=== PATIENT | female | born 1935 | race Caucasian/White ===

== ENCOUNTER 2017-12-03 08:52 | Inpatient (IN) | payer MEDICARE, OTHER ==
--- NOTE | 2017-11-20 18:58 | HP ---
HISTORY AND PHYSICAL: DATE OF ADMISSION/SURGERY: 12/03/17 OPERATING SURGEON: Jesus Weston MD* (DICTATED BY GLADYS KULKARNI) REASON FOR VISIT: History and physical prior to undergoing a right total knee arthroplasty. HISTORY OF PRESENT ILLNESS: Ms. Meyers is a very pleasant 82-year-old female who reports today for history and physical examination prior to undergoing a right total knee arthroplasty by Dr. Jesus Weston. The patient states that she has had longstanding history of right knee pain, which has been worsening over the past several years. She has tried conservative treatments such as physical therapy and NSAIDs; however, continues to have pain. She has elected to undergo a right total knee arthroplasty by Dr. Weston on 12/03/17. PAST MEDICAL HISTORY: 1. Diabetes. 2. Back pain. 3. Asthma. 4. Chronic bronchitis. 5. History of cataract. 6. History of seizures with last seizure approximately 5 years ago. 7. Melanoma, status post resection. 8. History of basal cell carcinoma status post resection. PAST SURGICAL HISTORY: 1. Left knee melanoma resection. 2. Mohs surgery. 3. Appendectomy. 4. Carpal tunnel release, left side x2, right x1. 5. Melanoma resection. 6. Right foot surgery. SOCIAL HISTORY: Negative for tobacco use. Positive for rare alcohol use. Currently lives with , able to live on a 1-margarita home. REVIEW OF SYSTEMS: General: Negative for weight loss or gain. No difficulty with anesthesia. HEENT: Negative for headaches, lightheadedness, or dizziness. No syncopal episodes. No history of stroke. Positive history of epilepsy or paresthesia approximately 5 years ago. Positive for episodes of dizziness without syncopal episodes. Cardiac: Negative for murmurs, heart attack. No history of chest pain or palpitations. Lungs: No history of chronic cough. Positive for chronic bronchitis. No shortness of breath. Musculoskeletal: Positive for chronic back pain. Positive for right knee pain. Neurological: No paresthesias, numbness, or tingling. Vascular: No history of DVTs or PEs. Integument: No difficulty with wound healing. No open wounds or sores. Hematologic: Again, no PEs or DVTs. Infectious Disease : No history of MRSA, HIV, or hepatitis C. : Negative for urinary frequency , urgency. No history of urinary tract infections or kidney stones. GI: Negative for nausea, vomiting, constipation, or diarrhea. PHYSICAL EXAMINATION GENERAL: Well appearing, in no acute distress. Alert and oriented. Appears younger than stated age. HEENT: Normocephalic, atraumatic. Trachea midline. CARDIAC: Regular rate and rhythm. No murmurs, gallops, or rubs. LUNGS: Clear to auscultation bilaterally. Decreased breath sounds bilaterally likely due to body habitus. ABDOMEN: Soft, nontender, nondistended. Obese. No organomegaly palpable. Negative CVA tenderness bilaterally. INTEGUMENT: Skin intact. VASCULAR: Posterior tibial pulses 2+ bilaterally. Negative Trena's sign bilaterally. Sensation intake to light touch, bilateral lower extremities. MUSCULOSKELETAL: Right knee with range of motion 0 to 120 degrees. No effusion seen. No crepitus. No tenderness over the medial joint line or lateral joint line. No instability with valgus or varus stresses. RADIOGRAPHS: MRI of the right knee obtained on 10/25/17 showed degenerative changes with swelling of the articular cartilage in the femoral and tibial joint spaces, more medially than laterally with minimal bone spurring as well as a horizontal tear in the posterior horn of the medial meniscus and chondromalacia patella. ASSESSMENT: Right knee arthritis, end stage. PLAN: The patient is likely to undergo a right total knee arthroplasty by Dr. Weston on 12/03/17. Her x-rays were reviewed by Dr. Weston. She has had followup with Dr. Campos for her medical clearance and is pending medical clearance thus far. She will undergo preoperative testing today. She had no other questions or concerns with regards to her surgery and she will call us if any do arise. GLADYS KULKARNI [id number]/[facility] #: [id number] EARL
[~2017-12-03 08:52] MED LIST: Acetaminophen IV 1GM/100ML * 1,000 MG/100 ML VIAL IVPB ONE; Buffered Lidocaine 0.9% SYRIN* 5 ML/SYR SYRINGE INTRADERM ONE; Ondansetron INJ* 2 MG/ML VIAL IV ONE; Scopolamine 1.5 mg* PATCH TRANSDERM ONE
[2017-12-03] MEDS ORDERED: Ondansetron INJ* 2 MG/ML VIAL ONE ×2 (09:02→10:58)
[2017-12-03] MEDS ORDERED: ceFAZolin 2 GM PREMIX (*) 2 GM/50 ML BAG IVPB ONE (09:02)
[2017-12-03] MEDS ORDERED: Scopolamine 1.5 mg* PATCH ONE (09:02)
[2017-12-03] MEDS ORDERED: Buffered Lidocaine 0.9% SYRIN* 5 ML/SYR SYRINGE ONE (09:02)
[2017-12-03] MEDS ORDERED: Acetaminophen IV 1GM/100ML * 100 ML ONE (09:05)
[2017-12-03] MEDS ORDERED: fentaNYL* 50 MCG/ML 2 ML VIAL (100 MCG VIAL) ONE ×2 (09:19→13:55)
[2017-12-03] MEDS ORDERED: Midazolam* 1 MG/ML 2 ML VIAL (2 MG) ONE (09:20)
[2017-12-03] MEDS ORDERED: Rocuronium* 10 MG/ML VIAL ONE (10:13)
[2017-12-03] MEDS ORDERED: oxyCODONE TAB* 5 MG TAB PO PRN ×3 (10:17→12:45)
[2017-12-03] MEDS ORDERED: HYDROmorphone INJ* 1 MG/ML CARPUJECT SYRINGE IV PRN (10:17)
[2017-12-03] MEDS ORDERED: Ondansetron INJ* 2 MG/ML VIAL IV PRN ×2 (10:17→12:45)
[2017-12-03] MEDS ORDERED: diPHENhydraMINE IV* 50 MG/ML 1 ml VIAL (BENADRYL) IV PRN ×2 (10:17→12:45)
[2017-12-03] MEDS ORDERED: Naloxone* 0.4 MG/ML 1 ML VIAL IV PRN (10:17)
[2017-12-03] MEDS ORDERED: fentaNYL* 50 MCG/ML 2 ML VIAL (100 MCG VIAL) IV PRN (10:17)
[2017-12-03] MEDS ORDERED: Bupivacaine 0.25% SDV* 30 ML ONE ×2 (10:29→11:08)
[2017-12-03] MEDS ORDERED: Ketorolac INJ* 30 MG/ML 1 ML VIAL ONE (10:58)
[2017-12-03] MEDS ORDERED: Propofol* 10 MG/ML 20 ML BTL IV PUSH ONE ×2 (10:58→12:30)
[2017-12-03] MEDS ORDERED: HYDROmorphone INJ* 1 MG/ML CARPUJECT SYRINGE ONE (11:15)
[2017-12-03] MEDS ORDERED: Neostigmine Methylsulfate* 1 MG/ML 10 ML VIAL (1 mg/ml) ONE (12:06)
[2017-12-03] MEDS ORDERED: Glycopyrrolate IV* 0.2 MG/ML 1 ML VIAL ONE (12:06)
[2017-12-03] MEDS ORDERED: Magnesium Hydroxide LIQ* 30 ML UDC PO PRN (12:45)
[2017-12-03] MEDS ORDERED: oxyCODONE/Acetamin 5/325 MG* TAB PO PRN ×2 (12:45→18:25)
[2017-12-03] MEDS ORDERED: Ondansetron TAB* 4 MG PO PRN (12:45)
[2017-12-03] MEDS ORDERED: diPHENhydraMINE PO* 25 MG PO PRN (12:45)
[2017-12-03] MEDS ORDERED: Morphine VIAL* 4 MG/ML VIAL (1 ml vial) IV PRN ×2 (12:45)
[2017-12-03] MEDS ORDERED: Cyclobenzaprine TAB* 10 MG PO PRN (12:45)
[2017-12-03] MEDS ORDERED: Bisacodyl SUPP* 10 MG SUPP PR PRN (12:45)
[2017-12-03] MEDS ORDERED: Gabapentin CAP(*) 100 MG PO PRN (12:53)
[2017-12-03] MEDS ORDERED: D5W 1/2 NS 1000 ML BAG* 1,000 ML IV SCH (13:00)
[2017-12-03] MEDS ORDERED: oxyCODONE TAB* 5 MG TAB ONE (13:48)
--- NOTE | 2017-12-03 13:51 | RAD ---
HISTORY: Right total knee replacement COMPARISONS: None VIEWS: 2, Frontal and lateral views of the right knee FINDINGS: BONE DENSITY: Normal. BONES: The patient is status post right knee arthroplasty. There is no hardware failure or osteolysis. JOINTS: The patient is status post right knee arthroplasty. ALIGNMENT: There is no dislocation. SOFT TISSUES: There is post surgical change to the soft tissue. OTHER FINDINGS: None. IMPRESSION: STATUS POST RIGHT KNEE ARTHROPLASTY.
[2017-12-03] MEDS ORDERED: Warfarin TAB(*) 10 MG PO ONE (17:00)
[2017-12-03] MEDS ORDERED: Dextrose 50% Syringe 50 ML* 25 GM/50 ML SYRINGE IV PUSH PRN (18:24)
[2017-12-03] MEDS: ceFAZolin 1 GM in Dextrose (*) 1 GM/50 ML BAG IVPB SCH (20:32)
[2017-12-03] MEDS: levETIRAcetam TAB* 500 MG PO SCH (20:35)
[2017-12-03] MEDS: Docusate CAP* 100 MG PO SCH (20:35)
[2017-12-03] MEDS: Omeprazole CAP* 20 MG PO SCH (20:35)
[2017-12-03] MEDS: oxyCODONE/Acetamin 5/325 MG* TAB PO PRN (20:48)
[2017-12-03] MEDS: Magnesium Hydroxide LIQ* 30 ML UDC PO SCH (20:54)
[2017-12-03] MEDS ORDERED: Linagliptin (NF) 5 MG TAB PO SCH (21:00)
--- NOTE | 2017-12-03 21:33 | OP ---
DATE OF OPERATION: 12/03/17 - Inpatient, room SSU 346-02 DATE OF : 35 ATTENDING SURGEON: Jesus Weston MD PHARMACIST INTERN: Marcia Garces RPA ANESTHESIOLOGIST: Day Dowell MD ANESTHESIA: General endotracheal. PRE-OP DIAGNOSIS: Osteoarthritis, right knee. POST-OP DIAGNOSIS: Osteoarthritis, right knee. OPERATIVE PROCEDURE: Right total knee arthroplasty. ESTIMATED BLOOD LOSS: Less than 50 cc. COMPLICATIONS: None. SUMMARY: Mrs. Meyers is an 82-year-old female who has been having continued troubles with right knee pain. She had been treated conservatively, but has been having more troubles and limitations with the knee despite continued treatment. I discussed with her the total knee arthroplasty should work well to help decrease her pain and improve her function. Risks of surgery such as infection, scar formation, stiffness, DVT, pulmonary embolism, hardware failure , and continued pain were some of the risks discussed. She had been declared medically optimized and wished to proceed. Marcia Garces was present throughout the case and it could not have been done without an assist. DESCRIPTION OF PROCEDURE: The patient was brought to the OR and general endotracheal anesthesia was established. Montiel catheter was placed. Tourniquet was placed over the proximal right thigh and was used during the case. Total tourniquet time would be approximately 60 minutes. Right knee was prepped and then draped. Skin over the incisional area was infiltrated using 20 cc of 0.25% Marcaine without epinephrine. Esmarch was used to exsanguinate the leg and the tourniquet was raised. Midline incision was made centered about the patella and carried down to the medial side of the tibial tubercle. Incision was carried down through the skin and subcutaneous fat. Small bleeders encountered were ligated using electrocautery. Sharp parapatellar arthrotomy was made and quite a bit of clear yellowish joint fluid was encountered. Soft tissues were sharply elevated from the medial side of the tibia and the fat pad were sharply excised. Patella measured 22 mm in thickness and a nice 9.5 mm cut was taken. Patella was then easily subluxated laterally and the knee was flexed up. Nice exposure of the distal femur was obtained. Step drill was used to open the femoral canal and intramedullary guide was placed. Guide was adjusted until it was parallel with the epicondyles and posterior condyles and then pinned into place. Distal femoral cutting guide was then pinned into place and intramedullary guide was removed. Distal femoral cut was taken with resecting 2 mm of bone and at 2 degrees. This corresponded to preoperative templating that I had done. Femur was sized and she has had nicely for a 5. Unfortunately, I had pushed down perhaps a little to hard and the superior dill hole were to come out right in the cortex. This was moved up 2 mm and now this was within a substance of the cortex where I could feel the top and I thought this would be good. Anterior and posterior femoral cuts followed by the chamfer cuts were taken. Attention was turned to the tibia. Step drill was used to open the tibial canal and the intramedullary guide was placed. Outrigger was assembled and adjusted until it appeared it would take 2 mm from the worn medial side. Cutting guide was then pinned into place and the proximal tibial cut was taken. Spacer block was placed and her flexion and extension gaps were perfect. She was in slight varus , but I thought considering her gaps were perfect that this would be acceptable. Proximal tibia was sized and a D fit very nicely. Proximal tibia was drilled and then punched. Femoral trial was placed and the notch was finished and the stud holes were drilled. She was trialed with a 10 mm trial polyethylene and came out nicely into full extension, flexed easily, and patellar tracking was perfect even without the prosthesis. Patella was sized and the 32 sat nicely. Holes were drilled and trial was snapped into place and she had the same wonderful tracking. Trial instrumentation was removed and knee was copiously pulse lavaged. Cement was being prepared. Tibia followed by femur and patella were all cemented into place. Once the cement had hardened , knee was searched for excess cement and a few small pieces were found. Knee was again copiously pulse lavaged and 10 polyethylene was then snapped into place. Knee was again pulse lavaged and parapatellar arthrotomy was repaired using interrupted #1 Vicryl sutures. Tourniquet was let down and no significant bleeding was encountered. Subcutaneous tissues were reapproximated with 2-0 Vicryl. Skin was closed using henrique. Sterile dressing and a Cryo/ Cuff were applied in the OR. The patient was then extubated in the OR and was stable on transfer to the recovery room. [id number]/[facility] #: [id number] EARL
--- NOTE | 2017-12-03 23:13 | CONS ---
CC: Dr. Dex Campos; Dr. Jesus Weston* CONSULTATION REPORT: DATE OF CONSULT: 12/03/17 PRIMARY CARE PROVIDER: Dr. Dex Campos. PHYSICIAN REQUESTING CONSULTATION: Dr. Jesus Weston. ATTENDING PHYSICIAN: Dr. Aydee Gil (dictated by Steve Camacoh NP). REASON FOR CONSULTATION: Bradypnea in a patient postop elective surgery. HISTORY OF PRESENT ILLNESS: Ms. Meyers is an 82-year-old female with past medical history significant for diabetes mellitus, back pain, asthma, history of epilepsy, melanoma, basal cell carcinoma, paroxysmal atrial fibrillation, TIA , GERD, diverticulosis and osteoarthritis, who presented to the hospital for an elective right total knee arthroplasty with Dr. Jesus Weston today. The patient states that leading up to her surgery today, she has been in her usual state of health, although she has felt fatigued lately as she cares for her . She denies any recent fevers, chills, chest pain, shortness of breath , nausea, vomiting, diarrhea. The patient states that she is unaware of any snoring while she sleeps. She denies any recent cold symptoms or history of sleep apnea. While in the recovery room, the patient was reported to have respiratory rates between 12 and 16. When she arrived to the floor out of the PACU, she was noted to have respiratory rate of 4 when sleeping, this would improve. Due to her bradypnea, the hospitalists were asked to consult on the patient. PAST MEDICAL HISTORY: 1. Diabetes mellitus. 2. Back pain. 3. Asthma. 4. Epilepsy. 5. Melanoma. 6. Basal cell carcinoma. 7. Paroxysmal atrial fibrillation. 8. Mitral valve stenosis. 9. TIA history. 10. GERD. 11. Diverticulosis. 12. Osteoarthritis. PAST SURGICAL HISTORY: 1. Status post excision of melanoma to left knee. 2. Status post Mohs surgery. 3. Status post appendectomy. 4. Status post bilateral carpal tunnel release. 5. Status post excision of neuroma from her left foot. 6. Status post right 2nd hammertoe repair. 7. Status post tonsillectomy. 8. Status post right rotator cuff repair. 9. Status post left knee arthroscopy. 10. Status post left rotator cuff repair. 11. Status post bilateral 1st metatarsal surgery. 12. Status post basal cell carcinoma excision underneath the left breast. 13. Status post excision of melanoma from chin. 14. Status post L4-5 laminectomy. 15. Status post right foot 2nd digit surgery. HOME MEDICATIONS: Include: 1. Neurontin 200 mg oral twice daily as needed for pain. 2. Diflucan 150 mg oral every morning. 3. Viactiv vitamin 1 chewable every morning. 4. Ocuvite 1 oral every morning. 5. Meloxicam 15 mg oral every morning. 6. Jardiance 25 mg oral every morning. 7. Diltiazem 120 mg oral every morning. 8. Omeprazole 40 mg oral every morning. 9. Osteo Bi-Flex 1 tablet oral every morning. 10. Selenium 100 mcg oral every morning. 11. Aspirin 325 mg oral 3 times daily. 12. [place] 5/325 one tablet oral twice daily as needed for pain. 13. Keppra 750 mg oral every 12 hours. 14. Linagliptin 5 mg oral daily at bedtime. ALLERGIES: HEPARIN, LATEX, METFORMIN, MOXIFLOXACIN, PROCAINE, AMBIEN, NOVOCAINE , ENVIRONMENTAL ALLERGIES. FAMILY HISTORY: The patient's mother had a history of heart disease. The patient's father with a history of diabetes mellitus. She had a paternal grandfather and grandmother with a history of breast cancer. She had a brother who passed at age 57 with a history of cancer and heart disease. SOCIAL HISTORY: The patient denies tobacco, alcohol, recreational drug use. She lives with her . Her daughterGay will be her surrogate decision maker in the event she is unable to make decisions for herself. REVIEW OF SYSTEMS: I performed an 11-point review of systems. All the pertinent positives and negatives are mentioned in the history of present illness. The remaining review of systems are negative. PHYSICAL EXAMINATION: Vital Signs: Temperature 97.6, heart rate 73, respiratory rate 10, O2 sat 99% on 2 L via nasal cannula, blood pressure 136/ 51. General Appearance: The patient is alert, pleasant, appears to be in no acute distress. HEENT: Normocephalic, atraumatic. Pupils are equal and reactive to light. Extraocular movements are intact. Respiratory: There is no accessory muscle use. The lungs are clear to auscultation bilateral. Cardiovascular: Regular rate and rhythm. S1, S2 present. There is no murmurs , rubs, or gallops heard. Abdomen: Soft, nontender, nondistended. There are bowel sounds present x4. Extremities: No lower extremity edema. DP and PT pulses are 2+ and symmetric. Musculoskeletal: There is no clubbing or cyanosis noted. The patient exhibits good strength in all extremities. Neurological: The patient is alert and oriented x4. Cranial nerves II through XII are grossly intact. Psychological: The patient is calm and cooperative. Skin: There are no rashes or abnormalities seen. The patient has a dressing that is clean, dry, and intact to her right knee. DIAGNOSTIC STUDIES/LAB DATA: Preoperative labs from 11/08/17: Sodium 140, potassium 4.4, chloride 107, CO2 24, BUN 26, creatinine 0.99, glucose 135. White blood cell count 7.3, hemoglobin 10.3, hematocrit 33, platelet count 300. Urinalysis from 11/14/17 significant for 3+ leukocyte esterase, 2+ wbc's, squamous epithelial cells and transition cells present. ABG from today; pH 7.34 , pCO2 41, pO2 90, HCO3 22.3, O2 sat 98.6, base excess negative 3.4. IMPRESSION: Ms. Meyers is an 82-year-old female with past medical history significant for diabetes mellitus, transient ischemic attack, gastroesophageal reflux disease, diverticulosis, asthma, back pain, melanoma, paroxysmal atrial fibrillation and osteoarthritis, who presented to the hospital for an elective right total knee arthroplasty with Dr. Weston. The hospitalists were asked to assist with the co-medical management of this patient in addition to evaluate her bradypnea postoperatively. ASSESSMENT/PLAN: 1. Status post right total knee arthroplasty. Management per Orthopedic Surgery. The patient will have physical therapy and occupational therapy in the morning. She will have a urinary catheter in place until the morning. She will have DVT prophylaxis per Orthopedics. She will have pain management and be placed on a bowel regimen. Her H and H will be trended. 2. Bradypnea. The patient's respiratory rate is currently 7 to 16. She drops down to 7 when she is sleeping and is around 16 when she is awake and talking. She is easily arousable, I do not feel she needs any Narcan at this time. She had an ABG significant for a pH of 7.34 and O2 sat of 98.6. We will continue to monitor the patient on capnography overnight. 3. History of paroxysmal atrial fibrillation. The patient states that she has had 1 episode of atrial fibrillation in the past. She is not currently anticoagulated for this. She will be continued on her diltiazem. 4. Diabetes mellitus. We will get fingersticks a.c. and h.s. Place the patient on a lispro sliding scale. We will hold her Jardiance and linagliptin while she is in the hospital and resume at discharge. The patient's last hemoglobin A1c was 7.6. 5. History of back pain. The patient will be given medications per Orthopedic Surgery. She will have Neurontin as needed. 6. Gastroesophageal reflux disease. The patient will be continued on her home omeprazole. 7. Asthma. The patient has no signs of acute exacerbation. She is not on any maintenance medications at home. We will continue to monitor. 8. History of epilepsy. The patient's last seizure was approximately 5 years ago. She will be continued on her home Keppra dosing. 9. Fluids, electrolytes, and nutrition. The patient will have IV fluids overnight. She will be on a consistent carbohydrate diet. 10. Code status. Full code. 11. DVT prophylaxis. The patient will have Lovenox bridge to warfarin per Orthopedic Surgery. 12. Disposition. Inpatient. Disposition will be per Orthopedic Surgery. TIME SPENT: Time for this consultation was approximately 60 minutes, greater than half of that was spent with the patient discussing medications, past medical history and the events leading up to her arrival today. The case has been reviewed with the attending, Dr. Gil, who agrees with the plan of care. STEVE CAMACHO, LEAH [id number]/[facility] #: [id number] EARL
[2017-12-04] MEDS: oxyCODONE/Acetamin 5/325 MG* TAB PO PRN ×2 (02:22→06:19)
[2017-12-04] MEDS: ceFAZolin 1 GM in Dextrose (*) 1 GM/50 ML BAG IVPB SCH ×2 (04:13→13:02)
[2017-12-04 05:53] LABS: Hematocrit 27 % (35-47); Hemoglobin 8.4 g/dl (12.0-16.0); Mean Platelet Volume 7.4 um3 (7.4-10.4); Platelet Count 213 10^3/ul (150-450)
[2017-12-04 06:01] LABS: INR 1.07 (0.77-1.02)
[2017-12-04 06:05] LABS: EGFR Non-African American 57.7 (>60)
[2017-12-04] MEDS: levETIRAcetam TAB* 500 MG PO SCH ×2 (08:26→22:28)
[2017-12-04] MEDS: Fluconazole 100 MG TAB* TAB PO SCH (08:28)
[2017-12-04] MEDS: Diltiazem CD CAP* 120 MG PO SCH (08:28)
[2017-12-04] MEDS: Docusate CAP* 100 MG PO SCH ×2 (08:28→22:28)
[2017-12-04] MEDS: Magnesium Hydroxide LIQ* 30 ML UDC PO SCH ×2 (08:30→22:30)
--- NOTE | 2017-12-04 08:36 | PN ---
Progress Note - Progress Note Date of Service: 12/04/17 SOAP: Subjective: [Pt was seen sitting up in chair today while eating breakfast. Pt states that she is doing well. States that she does have some pain in the knee. Denies any nausea, vomiting, chest pain or coughing. Denies SOB. Denies numbness or tingling. ] Objective: [General: alert, awake and oriented. NAD. MSK, RLE: Dressing is clean, dry and intact. Pt is able to df/pf. Calf is soft and non tender. NVI and 2+ DP. ] Vital Signs Temp 98.2 F 12/04/17 03:51 Pulse 98 12/04/17 03:51 Resp 12 12/04/17 06:19 BP 132/53 12/04/17 03:51 Pulse Ox 98 12/04/17 03:51 Intake & Output 12/03/17 12/04/17 12/04/17 18:59 06:59 18:59 Intake Total 2019 1999 Output Total 400 1275 Balance 1620 725 Weight 173 lb Intake: IV Fluids 2019 1000 D5W 1/2 NS 270 LR 1000 1000 NS 700 NS 50ML, Cefazolin 2G 50 IVPB 100 ABX - CEFAZOLIN 100 Oral 900 Output: Montiel 200 1275 Estimated Blood Loss 200 Assessment: [POD 1 Right total knee arthroplasty] Plan: [Start PT this am Continue with current pain medication Continue with lovenox for anticoagulation Dressing change tomorrow. ]
[2017-12-04] MEDS ORDERED: EMPAGLIFLOZIN 25 MG PO SCH (09:00)
[2017-12-04] MEDS: Insulin LISPRO* 1 UNITS UNIT SUBCUT SCH ×3 (10:12→17:59)
[2017-12-04] MEDS: SELENIUM 200 MCG PO SCH (10:12)
[2017-12-04] MEDS ORDERED: oxyCODONE TAB* 5 MG TAB PO PRN ×2 (10:32→10:34)
[2017-12-04] MEDS ORDERED: Enoxaparin(*) 30 MG/0.3 ML SYR SUBCUT SCH (12:00)
[2017-12-04] MEDS: Acetaminophen TAB* 325 MG PO SCH ×2 (13:02→17:51)
[2017-12-04] MEDS ORDERED: Warfarin TAB(*) 4 MG PO ONE (17:00)
--- NOTE | 2017-12-04 17:38 | PN ---
Subjective Date of Service: 12/04/17 Interval History: Patient seen and examined at bedside. Denies fever, chills, shortness of breath , chest discomfort, N/V/D. Pt states that her pain is controlled. Per Pt's Daughter Gay, she usually develops confusion post-op. It's to not that the Pt states that she avoids Tylenol as it causes her to be "angry", she is will to trial Tylenol. Family History: Unchanged from Admission Social History: Unchanged from Admission Past Medical History: Unchanged from Admission Objective Active Medications: Acetaminophen (Tylenol Tab*) 975 mg PO Q6H SHWETA Bisacodyl (Dulcolax Supp*) 10 mg OH DAILY PRN Reason: constipation Cyclobenzaprine HCl (Flexeril Tab*) 10 mg PO TID PRN Reason: SPASMS Dextrose (D50w Syringe 50 Ml*) 12.5 gm IV PUSH .FOR FS < 60 - SS PRN Reason: FS < 60 Diltiazem HCl (Cardizem Cd Cap*) 120 mg PO QAM SHWETA Diphenhydramine HCl (Benadryl Iv*) 25 mg IV Q6H PRN Reason: itching Diphenhydramine HCl (Benadryl Po*) 25 mg PO Q6H PRN Reason: itching Docusate Sodium (Colace Cap*) 100 mg PO BID SHWETA Enoxaparin Sodium (Lovenox(*)) 30 mg SUBCUT Q24H SHWETA Fluconazole (Diflucan 100 Mg Tab*) 150 mg PO DAILY SHWETA Gabapentin (Neurontin Cap(*)) 200 mg PO BID PRN Reason: PAIN Insulin Human Lispro (Humalog*) 0 - 10 units SUBCUT AC SHWETA Levetiracetam (Keppra Tab*) 750 mg PO Q12H SHWETA Magnesium Hydroxide (Milk Of Magnesia Liq*) 30 ml PO BID SHWETA Magnesium Hydroxide (Milk Of Magnesia Liq*) 30 ml PO Q6H PRN Reason: constipation Omeprazole (Prilosec Cap*) 40 mg PO BEDTIME SHWETA Ondansetron HCl (Zofran Inj*) 4 mg IV Q6H PRN Reason: nausea Ondansetron HCl (Zofran Tab*) 4 mg PO Q6H PRN Reason: NAUSEA Oxycodone HCl (Roxycodone Tab*) 5 mg PO Q4H PRN Reason: PAIN - SEVERE Oxycodone HCl (Roxycodone Tab*) 10 mg PO Q4H PRN Reason: PAIN - BREAKTHROUGH Pharmacy Profile Note (Scopolamine Patch Remove*) 1 note PATCH OFF ONCE ONE Stop: 12/06/17 06:01 Pharmacy Profile Note (Coumadin Daily Reminder*) 1 note FOLLOW UP 1700 SHWETA Selenium (Selenium (Nf)) 100 mcg PO QAM [facility] Vital Signs - 8 hr 12/04/17 11:22 Temperature 98.1 F Pulse Rate 100 Respiratory 18 Rate Blood Pressure 132/43 (mmHg) O2 Sat by Pulse 98 Oximetry Oxygen Devices in Use Now: None Appearance: NAD, sitting up in bed Ears/Nose/Mouth/Throat: Mucous Membranes Moist Respiratory: Symmetrical Chest Expansion and Respiratory Effort, Clear to Auscultation Cardiovascular: NL Sounds; No Murmurs; No JVD, RRR Abdominal: NL Sounds; No Tenderness; No Distention Extremities: No Edema Skin: No Rash or Ulcers Neurological: Alert and Oriented x 3 - , confused, NL Muscle Strength and Tone Lines/Tubes/Other Access: Clean, Dry and Intact Peripheral IV - site benign Nutrition: Taking PO's Result Diagrams: 12/04/17 05:21 12/04/17 05:21 Assess/Plan/Problems-Billing Assessment: Ms. Meyers is an 82 yo female with PMH significant for DM, back pain, asthma, epilepsy, melanoma, breast CA, P afib, MV stenosis, TIA, GERD, diverticulosis, osteoarthritis. - Patient Problems (1) Status post total right knee replacement Code(s): Z96.651 - PRESENCE OF RIGHT ARTIFICIAL KNEE JOINT SNOMED Code(s): 2445153341125 Comment: - POD 1, managment per ortho - Continue pain management, bowel regimen, PT and OT (2) Acute confusion Code(s): R41.0 - DISORIENTATION, UNSPECIFIED SNOMED Code(s): 006616705 Comment: - Suspect post-op delirium - Pt with a history of confusion post-op - Continue supportive care and limit narcotics as able (3) Bradypnea Code(s): R06.89 - OTHER ABNORMALITIES OF BREATHING SNOMED Code(s): 47156189 Comment: - Resolved - Suspect secondary to anesthesia (4) Paroxysmal atrial fibrillation Code(s): I48.0 - PAROXYSMAL ATRIAL FIBRILLATION SNOMED Code(s): 009975026 Comment: - Heart rate regular - Continue diltiazem (5) Diabetes Code(s): E11.9 - TYPE 2 DIABETES MELLITUS WITHOUT COMPLICATIONS SNOMED Code(s) : 78004499 Comment: - Glucose 140-180's - HgA1C, 7.6 - Continue Lispro SS - Hold Jardiance and linagliptin and resume at discharge (6) Back pain Code(s): M54.9 - DORSALGIA, UNSPECIFIED SNOMED Code(s): 777232201 Comment: - Continue neurontin PRN (7) GERD (gastroesophageal reflux disease) Code(s): K21.9 - GASTRO-ESOPHAGEAL REFLUX DISEASE WITHOUT ESOPHAGITIS SNOMED Code(s): 899671354 Comment: - Continue omeprazole (8) Asthma Code(s): J45.909 - UNSPECIFIED ASTHMA, UNCOMPLICATED SNOMED Code(s): 263385902 Comment: - No signs of acute exacerbation (9) Epilepsy Code(s): G40.909 - EPILEPSY, UNSP, NOT INTRACTABLE, WITHOUT STATUS EPILEPTICUS SNOMED Code(s): 59572514 Comment: - Continue Keppra (10) DVT prophylaxis Code(s): JXO6305 - SNOMED Code(s): 802144791 Comment: - Continue lovenox bridge to warfarin per ortho (11) Full code status Code(s): Z78.9 - OTHER SPECIFIED HEALTH STATUS SNOMED Code(s): 792498472 Status and Disposition: Inpatient. Disposition per orthopedics.
[2017-12-04] MEDS: Omeprazole CAP* 20 MG PO SCH (22:28)
[2017-12-05] MEDS: Acetaminophen TAB* 325 MG PO SCH ×2 (00:42→06:19)
[2017-12-05 06:56] LABS: Hematocrit 26 % (35-47); Hemoglobin 8.7 g/dl (12.0-16.0); Mean Platelet Volume 7.5 um3 (7.4-10.4); Platelet Count 247 10^3/ul (150-450)
[2017-12-05 07:04] LABS: INR 2.88 (0.77-1.02)
[2017-12-05] MEDS: Docusate CAP* 100 MG PO SCH (07:38)
[2017-12-05] MEDS: Fluconazole 100 MG TAB* TAB PO SCH (07:38)
[2017-12-05] MEDS: Diltiazem CD CAP* 120 MG PO SCH (07:38)
[2017-12-05] MEDS: levETIRAcetam TAB* 500 MG PO SCH (07:39)
[2017-12-05] MEDS: Magnesium Hydroxide LIQ* 30 ML UDC PO SCH (07:43)
[2017-12-05] MEDS: SELENIUM 200 MCG PO SCH (07:43)
[2017-12-05 07:57] VITALS: BP 129/47
[2017-12-05] MEDS: Insulin LISPRO* 1 UNITS UNIT SUBCUT SCH (08:46)
--- NOTE | 2017-12-05 10:34 | PN ---
Subjective Date of Service: 12/05/17 Interval History: Patient seen and examined at bedside. Denies fever, chills, shortness of breath , chest discomfort, N/V/D. Pt had increased confusion overnight. When talking with the Pt and daughter this morning, they report post-op delirium lasting for 3 months after her previous surgery. Discussed the importance to continue to limit narcotic if she is tolerating the Tylenol ok. Pt report open skin under her breasts. Family History: Unchanged from Admission Social History: Unchanged from Admission Past Medical History: Unchanged from Admission Objective Active Medications: Acetaminophen (Tylenol Tab*) 975 mg PO Q6H [facility] Bisacodyl (Dulcolax Supp*) 10 mg VT DAILY PRN Reason: constipation Cyclobenzaprine HCl (Flexeril Tab*) 10 mg PO TID PRN Reason: SPASMS Dextrose (D50w Syringe 50 Ml*) 12.5 gm IV PUSH .FOR FS < 60 - SS PRN Reason: FS < 60 Diltiazem HCl (Cardizem Cd Cap*) 120 mg PO QAM [facility]A Diphenhydramine HCl (Benadryl Iv*) 25 mg IV Q6H PRN Reason: itching Diphenhydramine HCl (Benadryl Po*) 25 mg PO Q6H PRN Reason: itching Docusate Sodium (Colace Cap*) 100 mg PO BID SH[facility]A Fluconazole (Diflucan 100 Mg Tab*) 150 mg PO DAILY SH[facility] Gabapentin (Neurontin Cap(*)) 200 mg PO BID PRN Reason: PAIN Insulin Human Lispro (Humalog*) 0 - 10 units SUBCUT AC [facility] Levetiracetam (Keppra Tab*) 750 mg PO Q12H [facility] Magnesium Hydroxide (Milk Of Magnesia Liq*) 30 ml PO BID [facility] Magnesium Hydroxide (Milk Of Magnesia Liq*) 30 ml PO Q6H PRN Reason: constipation Omeprazole (Prilosec Cap*) 40 mg PO BEDTIME [facility] Ondansetron HCl (Zofran Inj*) 4 mg IV Q6H PRN Reason: nausea Ondansetron HCl (Zofran Tab*) 4 mg PO Q6H PRN Reason: NAUSEA Oxycodone HCl (Roxycodone Tab*) 5 mg PO Q4H PRN Reason: PAIN - SEVERE Oxycodone HCl (Roxycodone Tab*) 10 mg PO Q4H PRN Reason: PAIN - BREAKTHROUGH Pharmacy Profile Note (Scopolamine Patch Remove*) 1 note PATCH OFF ONCE ONE Stop: 12/06/17 06:01 Pharmacy Profile Note (Coumadin Daily Reminder*) 1 note FOLLOW UP 1700 [facility] Selenium (Selenium (Nf)) 100 mcg PO QAM [facility] Vital Signs - 8 hr 12/05/17 12/05/17 12/05/17 02:38 03:33 05:09 Temperature 98.9 F Pulse Rate 98 Respiratory 16 20 16 Rate Blood Pressure 141/45 (mmHg) O2 Sat by Pulse 92 Oximetry 12/05/17 07:35 Temperature 97.9 F Pulse Rate 99 Respiratory 16 Rate Blood Pressure 129/47 (mmHg) O2 Sat by Pulse 92 Oximetry Oxygen Devices in Use Now: None Appearance: NAD, sitting up in a chair Ears/Nose/Mouth/Throat: Mucous Membranes Moist Respiratory: Symmetrical Chest Expansion and Respiratory Effort, Clear to Auscultation Cardiovascular: NL Sounds; No Murmurs; No JVD, RRR Abdominal: NL Sounds; No Tenderness; No Distention Extremities: - - Mild right LE swelling Skin: - - Dressing to right knee clean, dry and intact. Under bilateral breasts red with small open areas Neurological: Alert and Oriented x 3 - , with periods of confusion, NL Muscle Strength and Tone Lines/Tubes/Other Access: Clean, Dry and Intact Peripheral IV - site benign Nutrition: Taking PO's Result Diagrams: 12/05/17 06:37 12/04/17 05:21 Assess/Plan/Problems-Billing Assessment: Ms. Meyers is an 82 yo female with PMH significant for DM, back pain, asthma, epilepsy, melanoma, breast CA, P afib, MV stenosis, TIA, GERD, diverticulosis, osteoarthritis. - Patient Problems (1) Status post total right knee replacement Code(s): Z96.651 - PRESENCE OF RIGHT ARTIFICIAL KNEE JOINT SNOMED Code(s): 5057681129470 Comment: - POD 2, managment per ortho - Continue pain management, bowel regimen, PT and OT (2) Acute confusion Code(s): R41.0 - DISORIENTATION, UNSPECIFIED SNOMED Code(s): 837259779 Comment: - Suspect post-op delirium - Pt with a history of confusion post-op - Continue supportive care and limit narcotics as able (3) Skin breakdown Code(s): L90.9 - ATROPHIC DISORDER OF SKIN, UNSPECIFIED SNOMED Code(s): 136373626 Comment: - Mild skin breakdown under bilateral breasts - Suspect secondary to moisture - Will apply skin prep (4) Bradypnea Code(s): R06.89 - OTHER ABNORMALITIES OF BREATHING SNOMED Code(s): 04892316 Comment: - Resolved - Suspect secondary to anesthesia (5) Paroxysmal atrial fibrillation Code(s): I48.0 - PAROXYSMAL ATRIAL FIBRILLATION SNOMED Code(s): 337694085 Comment: - Heart rate regular - Continue diltiazem (6) Diabetes Code(s): E11.9 - TYPE 2 DIABETES MELLITUS WITHOUT COMPLICATIONS SNOMED Code(s) : 47165525 Comment: - Glucose 140-170's - HgA1C, 7.6 - Continue Lispro SS (Pt has been declining) - Hold Jardiance and linagliptin and resume at discharge (7) Back pain Code(s): M54.9 - DORSALGIA, UNSPECIFIED SNOMED Code(s): 735283990 Comment: - Continue neurontin PRN (8) GERD (gastroesophageal reflux disease) Code(s): K21.9 - GASTRO-ESOPHAGEAL REFLUX DISEASE WITHOUT ESOPHAGITIS SNOMED Code(s): 931603184 Comment: - Continue omeprazole (9) Asthma Code(s): J45.909 - UNSPECIFIED ASTHMA, UNCOMPLICATED SNOMED Code(s): 924075858 Comment: - No signs of acute exacerbation (10) Epilepsy Code(s): G40.909 - EPILEPSY, UNSP, NOT INTRACTABLE, WITHOUT STATUS EPILEPTICUS SNOMED Code(s): 22189806 Comment: - Continue Keppra (11) DVT prophylaxis Code(s): WIC1908 - SNOMED Code(s): 948578409 Comment: - Continue lovenox bridge to warfarin per ortho (12) Full code status Code(s): Z78.9 - OTHER SPECIFIED HEALTH STATUS SNOMED Code(s): 407601460 Status and Disposition: Inpatient. Disposition per orthopedics.
--- NOTE | 2017-12-05 11:26 | PN ---
Progress Note - Progress Note Date of Service: 12/05/17 SOAP: Subjective: []Patient seen at bedside. She is feeling well and desires discharge to home. Narcotic medications discontinued due to post-op delirium, with improvement of confusion taking tylenol alone. Denies CP, SOB, dizziness, nausea. Pain is well controlled with Tylenol. Objective: [] Vital Signs Temp 97.9 F 12/05/17 07:35 Pulse 99 12/05/17 07:35 Resp 14 12/05/17 08:00 BP 129/47 12/05/17 07:35 Pulse Ox 92 12/05/17 07:35 Intake & Output 12/04/17 12/05/17 12/05/17 18:59 06:59 18:59 Intake Total 350 965 200 Output Total 475 1550 200 Balance -125 -585 0 Intake: Oral 350 965 200 Output: Urine 475 1550 200 Other: # Bowel Movements 0 Laboratory Last Values Hgb 8.7 g/dl (12.0-16.0) L 12/05/17 06:37 Hct 26 % (35-47) L 12/05/17 06:37 Plt Count 247 10^3/ul (150-450) 12/05/17 06:37 MPV 7.5 um3 (7.4-10.4) 12/05/17 06:37 INR (Anticoag Therapy) 2.88 (0.77-1.02) H 12/05/17 06:37 Patient Temperature Not Reportable 12/03/17 17:50 ABG pH 7.34 (7.35-7.45) L 12/03/17 17:50 ABG pH (Temp Correct) Not Reportable 12/03/17 17:50 ABG pCO2 41 mmHg (35-45) 12/03/17 17:50 ABG pCO2 (Temp Corrct Not Reportable 12/03/17 17:50 ABG pO2 90 mmHg (80-100) 12/03/17 17:50 ABG pO2 (Temp Correct Not Reportable 12/03/17 17:50 ABG HCO3 22.3 mmol/L (19-31) 12/03/17 17:50 ABG O2 Saturation 98.6 % (95-98) H 12/03/17 17:50 ABG Base Excess -3.4 (-2.0-2.0) L 12/03/17 17:50 Respiration Rate Not Reportable 12/03/17 17:50 O2 Delivery Device n/c 12/03/17 17:50 Ventilator Type Not Reportable 12/03/17 17:50 Vent Mode Not Reportable 12/03/17 17:50 FiO2 1 12/03/17 17:50 Inspiratory Time Not Reportable 12/03/17 17:50 PEEP Not Reportable 12/03/17 17:50 Pressure Support Not Reportable 12/03/17 17:50 Pressure Control Not Reportable 12/03/17 17:50 EPAP Not Reportable 12/03/17 17:50 IPAP Not Reportable 12/03/17 17:50 BiPAP Not Reportable 12/03/17 17:50 Sodium 136 mmol/L (139-145) L 12/04/17 05:21 Potassium 4.4 mmol/L (3.5-5.0) 12/04/17 05:21 Chloride 106 mmol/L (101-111) 12/04/17 05:21 Carbon Dioxide 24 mmol/L (22-32) 12/04/17 05:21 Anion Gap 6 mmol/L (2-11) 12/04/17 05:21 BUN 14 mg/dL (6-24) 12/04/17 05:21 Creatinine 0.93 mg/dL (0.51-0.95) 12/04/17 05:21 Est GFR ( Amer) 74.2 (>60) 12/04/17 05:21 Est GFR (Non-Af Amer) 57.7 (>60) 12/04/17 05:21 BUN/Creatinine Ratio 15.1 (8-20) 12/04/17 05:21 Glucose 149 mg/dL (70-100) H 12/04/17 05:21 POC Glucose (mg/dL) 174 mg/dL (70-100) H 12/05/17 07:32 Calcium 8.3 mg/dL (8.6-10.3) L 12/04/17 05:21 Blood Type B Positive 12/03/17 09:34 Antibody Screen Negative 12/03/17 09:34 General: Well appearing, NAD. Much less confused than yesterday. She answers questions appropriately. RLE: Dressing changed. Incision CDI without erythema or discharge. DF/PF intact. Sensation intact distally. DP 2+ BL LE: Calves supple and nontender without erythema, edema or palpable cords. Assessment: []POD 2 sp right total knee Plan: []WBAT PT/OT DC to home Tylenol for pain control Hold coumadin today
[2017-12-06] MEDS ORDERED: Scopolamine PATCH Remove* 1 NOTE MISC PATCH OFF ONE (06:00)
== END 2017-12-05 12:25 | disposition home health service (06) | DRG 470 ==
LOC: AA 08:52 → SSU 15:43
PROVIDERS: ADMIT Orthopaedic Surgery; ATTEND Internal Medicine
PROC: 0SRC0J9 Replacement of Right Knee Joint with Synthetic Substitute, Cemented, Open Approach (ICD-10-PCS; principal; 2017-12-03 10:30)
DX: M17.11 Unilateral primary osteoarthritis, right knee (principal); J45.909 Unspecified asthma, uncomplicated; J42 Unspecified chronic bronchitis; E11.36 Type 2 diabetes mellitus with diabetic cataract; M22.41 Chondromalacia patellae, right knee; I48.0 Paroxysmal atrial fibrillation; K21.9 Gastro-esophageal reflux disease without esophagitis; M21.161 Varus deformity, not elsewhere classified, right knee; G89.29 Other chronic pain; M54.9 Dorsalgia, unspecified; I05.0 Rheumatic mitral stenosis; G40.909 Epilepsy, unspecified, not intractable, without status epilepticus; K57.90 Diverticulosis of intestine, part unspecified, without perforation or abscess without bleeding; Z86.73 Personal history of transient ischemic attack (TIA), and cerebral infarction without residual deficits; Z88.1 Allergy status to other antibiotic agents; Z88.8 Allergy status to other drugs, medicaments and biological substances; Z85.820 Personal history of malignant melanoma of skin; Z91.040 Latex allergy status; Z72.89 Other problems related to lifestyle; Z82.49 Family history of ischemic heart disease and other diseases of the circulatory system; Z83.3 Family history of diabetes mellitus; Z80.3 Family history of malignant neoplasm of breast; Z85.3 Personal history of malignant neoplasm of breast; R41.0 Disorientation, unspecified; R06.89 Other abnormalities of breathing; T41.3X5A Adverse effect of local anesthetics, initial encounter; Y83.8 Other surgical procedures as the cause of abnormal reaction of the patient, or of later complication, without mention of misadventure at the time of the procedure; T88.2XXA Shock due to anesthesia, initial encounter; Y79.3 Surgical instruments, materials and orthopedic devices (including sutures) associated with adverse incidents; Y92.239 Unspecified place in hospital as the place of occurrence of the external cause; L98.8 Other specified disorders of the skin and subcutaneous tissue
CPT/HCPCS: 36415; 36600; 80048; 82803; 85014; 85018; 85049; 85610; 86850; 86900; 86901; 94760; A9270-GY; C1776; G8978-GP-CJ; G8978-GP-CK; G8979-GP-CI; G8987-GO-CL; G8988-GO-CI; J0690; J1170; J1650; J1885; J2250; J2405; J2704; J2710; J3010

== ENCOUNTER 2018-07-15 09:04 | Inpatient (IN) | payer MEDICARE, OTHER ==
--- NOTE | 2018-07-15 09:23 | ED ---
Abdominal Pain/Female - HPI Summary HPI Summary: This pt is an 82 y/o female presenting to [facility] via EMS from [facility] for abd pain and possible perforation. Pt reports she was at [facility] 2 days ago and was diagnosed with diverticulitis. She was placed on antibiotics and discharged home. This morning at around 05:00 pt developed increased abd pain and had a CT done that showed perforated bowel. Pt c/o chills, abd pain, abd distension. Denies fever, chest pain, SOB, nausea, vomiting. Pt had vancomycin and Zosyn this morning at [facility]. She was also given fentanyl with minimal relief. Her last bowel movement was yesterday. She last ate at 01:00 today and had chicken broth, jello, and stick of frozen ice. PMHx includes diabetes. Denies hx of stroke or [place]. - History of Current Complaint Stated Complaint: ABD PAIN Time Seen by Provider: 07/15/18 09:09 Hx Obtained From: Patient Onset/Duration: Lasting Days, Still Present Timing: Days Severity Currently: Severe Pain Intensity: 10 Pain Scale Used: 0-10 Numeric Location: Diffuse Radiates: No Aggravating Factor(s): Nothing Alleviating Factor(s): Nothing Associated Signs and Symptoms: Negative: Fever, Chest Pain, Nausea, Vomiting Allergies/Adverse Reactions: Allergies Allergy/AdvReac Type Severity Reaction Status Date / Time heparin Allergy Rash And Verified 07/15/18 09:27 Itching latex Allergy Rash And Verified 07/15/18 09:27 Itching metformin Allergy Rash Verified 07/15/18 09:27 moxifloxacin Allergy Unknown Verified 07/15/18 09:27 Reaction Details procaine AdvReac Severe Anaphylatic Verified 07/15/18 10:26 Shock zolpidem [From Ambien] AdvReac Mild Hallucinati Verified 07/15/18 09:27 ons ENVIRONMENTAL/SEASONAL Allergy Intermediate Runny Nose Uncoded 07/15/18 09:27 PMH/Surg Hx/FS Hx/Imm Hx Endocrine/Hematology History: Reports: Hx Diabetes Cardiovascular History: Reports: Hx Hypertension - CONTROL WITH MEDS, Other Cardiovascular Problems/Disorders - HX OF AFIB X 1 ACCORDING TO PATIENT Denies: Hx Pacemaker/ICD Respiratory History: Denies: Hx Asthma GI History: Reports: Hx Gastroesophageal Reflux Disease - OMEPRAZOLE, Hx Jaundice - A CHILD History: Reports: Hx Kidney Infection - HX OF IN THE PAST, Other Problems/ Disorders - HX OF YEAST INFECTIONS Musculoskeletal History: Reports: Hx Arthritis - "ALL OVER", Hx Orthopedic Injury, Other Musculoskeletal History - SPINAL STENOSIS Sensory History: Reports: Hx Cataracts - BILATERAL, Hx Contacts or Glasses - GLASSES Denies: Hx Hearing Aid Opthamlomology History: Reports: Hx Cataracts - BILATERAL, Hx Contacts or Glasses - GLASSES Neurological History: Reports: Hx Seizures, Other Neuro Impairments/Disorders - ? POSSIBLE TIA IN THE PAST Psychiatric History: Denies: Hx Panic Disorder, Other Psychiatric Issues/Disorders - Cancer History Cancer Type, Location and Year: skin Hx Chemotherapy: No Hx Radiation Therapy: No Hx Palliative Cancer Treatment: No - Surgical History Surgery Procedure, Year, and Place: TONSILLECTOMY 1965 [facility]. APPENDECTOMY 2012 [facility]. NEUROMA LEFT 4 TH TOE 30 YRS AGO [facility]. RIGHT 3RD HAMMER TOE REPAIR X 2 [facility], [facility],. [facility] OF RIGHT 3RD HAMMER TOE 2015 [facility]. MENISCUS LEFT KNEE 1997 [facility]. RIGHT ROTOTOR CUFF REPAIR 01/1992 [facility]. LEFT ROTATOR CUFF REPAIR X 2 1994, 1996 [facility]. MELANOMA REMOVED FROM BEHIND LEFT KNEE/ REMOVAL OF SEVERAL SKIN CA OVER THE YRS Hx Anesthesia Reactions: Yes - TAKES A LONG TIME TO WAKE Infectious Disease History: No Infectious Disease History: Denies: Hx Clostridium Difficile, Hx Hepatitis, Hx Human Immunodeficiency Virus (HIV), Hx of Known/Suspected MRSA, Hx Shingles, Hx Tuberculosis, History Other Infectious Disease, Traveled Outside the [place] in Last 30 Days - Family History Known Family History: Positive: Cardiac Disease - mother, Diabetes - father - Social History Alcohol Use: None Substance Use Type: Reports: None Smoking Status (MU): Never Smoked Tobacco Have You Smoked in the Last Year: No Review of Systems Positive: Chills. Negative: Fever Negative: Chest Pain Negative: Shortness Of Breath Gastrointestinal: Other - POS: abd distension Positive: Abdominal Pain. Negative: Vomiting, Nausea All Other Systems Reviewed And Are Negative: Yes Physical Exam - Summary Physical Exam Summary: VITAL SIGNS: Reviewed. GENERAL: Patient is a well-developed and nourished female who is lying comfortable in the stretcher. Patient is not in any acute respiratory distress. HEAD AND FACE: Normocephalic and atraumatic. EYES: PERRLA, EOMI x 2, No injected conjunctiva. EARS: Hearing grossly intact. Ear canals and tympanic membranes are WNL. MOUTH: Oropharynx within normal limits. NECK: Supple, trachea is midline, no adenopathy, no JVD. CHEST: Symmetric, no tenderness at palpation LUNGS: Clear to auscultation bilaterally. No wheezing or crackles. CVS: RRR, S1 and S2 present, no murmurs or gallops appreciated. ABDOMEN: Soft, diffuse tenderness. Abdomen distension. No bowel sounds. No rebound no guarding, and no masses palpated. No abdominal bruit or pulsations. EXTREMITIES: FROM in all major joints, no edema, no cyanosis or clubbing. NEURO: Alert and oriented x 3. No acute neurological deficits. Speech is normal. SKIN: Dry and warm Triage Information Reviewed: Yes Vital Signs On Initial Exam: Initial Vitals Temp Pulse Resp BP Pulse Ox 98.4 F 98 18 167/76 95 07/15/18 09:10 07/15/18 09:10 07/15/18 09:10 07/15/18 09:10 07/15/18 09:10 Vital Signs Reviewed: Yes Diagnostics - Vital Signs Vital Signs Temp Pulse Resp BP Pulse Ox 07/15/18 09:10 98.4 F 98 18 167/76 95 - Laboratory Lab Statement: Any lab studies that have been ordered have been reviewed, and results considered in the medical decision making process. Abdominal Pain Fem Course/Dx - Course Course Of Treatment: This pt is an 82 y/o female presenting to [facility] via EMS from [facility] for abd pain and possible perforation. Pt reports she was at [facility] 2 days ago and was diagnosed with diverticulitis. She was placed on antibiotics and discharged home. This morning at around 05:00 pt developed increased abd pain and had a CT done that showed perforated bowel. Pt c/o chills, abd pain, abd distension. Denies fever, chest pain, SOB, nausea, vomiting. Pt had vancomycin and Zosyn this morning at [facility]. She was also given fentanyl with minimal relief. Her last bowel movement was yesterday. She last ate at 01:00 today and had chicken broth, jello, and stick of frozen ice. PMHx includes diabetes. Denies hx of stroke or [place]. I discussed my physical exam and findings with Dr. Mejia from surgery who came and assessed the patient. He requested to continue IV fluids and given fentanyl for the pain. He reports that he will take the patient to the or for possible surgery. He also requested a medical consult. He discussed the case with Dr. Avila from the hospital services and he will consult for the patient. At this point the patient will be admitted to Dr. Mejia. The patient is hemodynamically stable alert and oriented 3. - Diagnoses Provider Diagnoses: Perforated viscus, Diffuse abdominal pain - Provider Notifications Discussed Care Of Patient With: Yuri Mejia Time Discussed With Above Provider: 09:27 Instructed by Provider To: Other - I discussed case with Dr. Mejia, surgeon , who will come see the pt in the ED. [09:33] I spoke with Dr. Avila, hospitalist, who accepted the pt for admission. Discharge - Sign-Out/Discharge Documenting (check all that apply): Patient Departure - Admit to [facility] imaging exams completed and their final reports reviewed: No Studies - Discharge Plan Condition: Stable Disposition: ADMITTED TO [facility] - Billing Disposition and Condition Condition: STABLE Disposition: Admitted to [facility] - Attestation Statements Document Initiated by Pierreibe: Yes Documenting Scribe: Rhonda Dominguez Provider For Whom Pierreibe is Documenting (Include Credential): Neo Chaudhary MD Scribe Attestation: IRhonda, scribed for Neo Chaudhary MD on 07/15/18 at 1845. Scribe Documentation Reviewed: Yes Provider Attestation: The documentation as recorded by the Rhonda melton accurately reflects the service I personally performed and the decisions made by me, Neo Chaudhary MD Status of Scribe Document: Viewed
[2018-07-15] MEDS ORDERED: NS 0.9% 1000 ML* 1,000 ML IV ONE (09:52)
[2018-07-15] MEDS ORDERED: fentaNYL* 50 MCG/ML 2 ML VIAL (100 MCG VIAL) IV SLOW PU ONE (09:52)
[2018-07-15] MEDS ORDERED: Gabapentin CAP(*) 100 MG PO PRN (10:20)
[2018-07-15] MEDS ORDERED: HYDROcodone/ACETAMIN 5-325 MG* 1 TAB PO PRN (10:20)
[2018-07-15] MEDS ORDERED: LEVETIRACETAM PO SCH (10:30)
[2018-07-15] MEDS ORDERED: Buffered Lidocaine 0.9% SYRIN* 5 ML/SYR SYRINGE INTRADERM ONE (10:31)
[2018-07-15] MEDS ORDERED: Albuterol/Ipratropium NEB.SOL* Albuterol 2.5 MG/Ipratropium 0.5 MG 3 ML INH PRN (10:34)
[2018-07-15] MEDS ORDERED: Dextrose 50% Syringe 50 ML* 25 GM/50 ML SYRINGE IV PUSH PRN (10:50)
[2018-07-15] MEDS ORDERED: ZOSYN 3.375 GM x ONE DOSE over 30 miuntes IVPB ×4 (11:00→19:30)
--- NOTE | 2018-07-15 11:08 | HP ---
CC: Dr. Dex Campos * DATE OF ADMISSION/DATE OF DICTATION: 07/15/2018. CHIEF COMPLAINT: Sudden onset of severe abdominal pain. HISTORY OF PRESENT ILLNESS: Ms. Ciara Meyers is an 82-year-old woman who lives in [place] who states that over the last two weeks or so she has had some generalized upper abdominal discomfort that started some time prior to Thanksgiving. This was described as nonspecific without nausea, vomiting or hematemesis. She has had no change in bowel habits or lower abdominal discomfort during that time. She does take a proton pump inhibitor per her records and does not have a history of peptic ulcer disease and she has been taking nonsteroidal pain medicine (Mobic) for her arthritic and low back discomfort. She does take aspirin daily as well. She was seen in the emergency room at [facility] on Sunday where she was noted to have a white blood cell count of 11,000. She underwent a CT scan of the abdomen and pelvis at that time which was relatively unremarkable and there was concern for possible early diverticulitis in the sigmoid colon area and she was started on oral antibiotics and discharged home. About 3 o'clock this morning she woke up with a sudden severe onset of abdominal pain which was much worse, mainly in the upper abdomen. This was associated with anorexia and nausea and she presented once again to the emergency room at [place]. Today, she was noted to have a white blood cell count just under 16,000 and a slightly tachycardia. She was noted to have generalized abdominal pain, somewhat worse in the right upper quadrant. A CT scan of the abdomen and pelvis was obtained without IV or oral contrast. I did review that with our radiologist, Dr. Hebert, here. This shows a moderate to large amount of free intraluminal air, mainly in the right upper quadrant of the liver as well as into the lesser sac with fluid around the liver. There was a significant amount of inflammation in the stomach and duodenal area as well. There was no evidence of lower abdominal inflammation, fluid, air, or significant diverticulitis. In light of these findings, she was started on IV antibiotics and resuscitated with IV fluids and transferred to the emergency room here at [facility]. PAST MEDICAL HISTORY: 1. Obesity. 2. Diabetes mellitus. 3. She has a history of a CVA. 4. History of atrial fibrillation. 5. Hypertension. 6. Seizure disorder. 7. History of melanoma. 8. Gastroesophageal reflux disease. 9. Osteoarthritis. PAST SURGICAL HISTORY: 1. Open appendectomy through a lower midline incision. 2. Low back surgery. 3. Right knee arthroscopy with subsequent knee replacement here in November 2017. ALLERGIES: HEPARIN, LATEX, METFORMIN, MOXIFLOXACIN, PROCAINE, ZOLPIDEM, AMBIEN , HAS SOME ENVIRONMENTAL ALLERGIES. SOCIAL HISTORY: She does not smoke. Drinks alcohol on a very rare social basis. She lives with her in [place]. REVIEW OF SYSTEMS: Cerebrovascular: She has a history of TIA, although she is somewhat vague and I do not have these complete records. Cardiovascular: She has hypertension. As far as I can tell she has not had significant coronary artery disease or myocardial infarction. Pulmonary: No wheezing, hemoptysis. Neurologic: She has a history of epilepsy and her last seizure was about five years ago. She continues on antiseizure medicine. GI: She has no history of peptic ulcer disease. She does have gastroesophageal reflux disease. PHYSICAL EXAMINATION GENERAL: In general, she is an elderly woman who is awake and alert, although lying flat in bed. She appears to be uncomfortable. She is oriented to person , place, and time. VITAL SIGNS: Temperature 98.4, pulse 98, blood pressure 133/77. HEENT: Her oral mucosa is dry. LUNGS: Clear to auscultation with normal respiratory effort. HEART: Regular rate and rhythm without murmurs, rubs or gallops. ABDOMEN: Soft, but slightly distended. She has a well-healed low midline incision which may be associated with a hernia which is not completely reducible. She has diminished bowel sounds throughout. She has generalized abdominal discomfort with rebound and peritoneal irritation throughout, somewhat worse in the upper quadrants. There is no overlying skin change. EXTREMITIES: Show no cyanosis or edema. LABORATORY DATA: Laboratory values reviewed and as per above she has a white blood cell count of 16,000. IMPRESSION: Peritonitis with pneumoperitoneum and free intraluminal fluid, mainly in the upper abdomen. She had a sudden onset of abdominal pain in the middle of the night, but also has had abdominal discomfort over the past several weeks. Her history and physical exam, as well as radiologic studies are consistent with a perforated gastric or duodenal ulcer that has been perhaps symptomatic for several weeks prior to this event last night. Medical problems as outlined above. RECOMMENDATIONS: I reviewed all the findings on the history and physical exam and the radiologic work-up with the patient and her . I recommend that an emergent laparoscopy with possible exploratory laparotomy for what most likely is a perforated gastric or duodenal ulcer. Less likely would be a lower GI type of perforation. Medical evaluation with a consultation from the Hospitalist service for management of her preoperative and postoperative medical condition. She may require intensive care unit admission postoperatively. PLAN: Laparoscopy with possible exploratory laparotomy with repair of perforated viscus, possible bowel resection and possible exploratory laparotomy. The procedure was discussed with the patient and her , and the risks of, but not limited to bleeding, infection, intra-abdominal abscess formation, injury to peritoneal and retroperitoneal structures, sepsis, , the risks of general anesthesia, deep vein thrombosis, and pulmonary embolism were explained. In addition, respiratory failure requiring long-term ventilator requirements were also explained. The patient will be kept NPO and will proceed later this morning to the operating room. She has received IV antibiotics. [id number]/CPS #: [id number] [facility]
[2018-07-15] MEDS ORDERED: fentaNYL* 50 MCG/ML 2 ML VIAL (100 MCG VIAL) ONE ×3 (11:19→14:09)
[2018-07-15] MEDS ORDERED: Midazolam* 1 MG/ML 2 ML VIAL (2 MG) ONE (11:19)
[2018-07-15] MEDS ORDERED: Propofol* 10 MG/ML 20 ML BTL ONE (12:17)
[2018-07-15] MEDS ORDERED: Famotidine IV* 10 MG/ML 2 ML (20 mg) ONE (12:17)
[2018-07-15] MEDS ORDERED: Succinylcholine* 20 MG/ML 10 ML VIAL ONE (12:17)
[2018-07-15] MEDS ORDERED: Dexamethasone IV* 4 MG/ML 1 ML (4 MG) ONE (12:17)
[2018-07-15] MEDS ORDERED: Cisatracurium* 2 MG/ML MDV 5 ML ONE (12:21)
[2018-07-15] MEDS ORDERED: Phenylephrine INJ* 10 MG/ML 1 ML VIAL (10 MG) ONE (12:41)
[2018-07-15] MEDS ORDERED: diPHENhydraMINE IV* 50 MG/ML 1 ml VIAL (BENADRYL) IV PRN (13:29)
[2018-07-15] MEDS ORDERED: Acetaminophen IV 1GM/100ML * 1,000 MG/100 ML VIAL IVPB ONE (13:29)
[2018-07-15] MEDS ORDERED: PROCHLORPERAZINE INJ 5 MG/ML 2 ML VIAL IV PRN (13:29)
[2018-07-15] MEDS ORDERED: Levalbuterol 0.63MG/3ML NEB* UNIT OF USE INH PRN (13:29)
[2018-07-15] MEDS ORDERED: Naloxone* 0.4 MG/ML 1 ML VIAL IV PRN (13:29)
[2018-07-15] MEDS ORDERED: Ondansetron INJ* 2 MG/ML VIAL IV PRN ×2 (13:29→18:33)
[2018-07-15] MEDS ORDERED: DiMENhydriNATE IV* 50 MG/ML VIAL IV PUSH PRN (13:29)
[2018-07-15] MEDS ORDERED: fentaNYL* 50 MCG/ML 2 ML VIAL (100 MCG VIAL) IV PRN (13:29)
--- NOTE | 2018-07-15 14:52 | BRIEFOPN ---
Brief Operative Note - Surgery Procedures: Procedures OPERATIVE REPORT PRE-OP: Pneumoperitoneum, Peritonitis POST-OP:Same, perforated pyloric ulcer PROCEDURE:Laparoscopic repair of perforated pyloric ulcer with omental Malick patch SURGEON: MD Roberto ANESTHESIA:Dr. Campos General ASST:Antonia Meyer MD IVF:1.5 l crystalloid EBL:min SPECIMEN:none DRAIN: #10 HENRY drain WOUND CLASS:4 COMPLICATIONS: none TO PACU
[2018-07-15] MEDS ORDERED: Glycopyrrolate IV* 0.2 MG/ML 1 ML VIAL ONE (14:54)
[2018-07-15] MEDS ORDERED: Ondansetron INJ* 2 MG/ML VIAL ONE (14:55)
--- NOTE | 2018-07-15 15:51 | CONS ---
CONSULTATION NOTE: DATE OF CONSULT: 07/15/18 REASON FOR CONSULT/CHIEF COMPLAINT: Chief complaint of abdominal pain; reason for consultation to better survey current medical issues. HISTORY OF PRESENT ILLNESS: The patient is an 82-year-old lady with history of diabetes, asthma, and chronic bronchitis as well as seizure disorder , on [facility] who unfortunately is a poor historian given the recent holidays as well as her 's recent hospitalization. She mentions that at around Thanksgiving time, her was discharged to our facility due to CVA and had been taking care of him, but mentions that sometime about 2 to 3 weeks ago, she has been having some abdominal pain, but only went to [facility] for consultation and evaluation 2 days prior to admission. At which point, she was diagnosed to have diverticulitis and was given some p.o. antibiotics given her normal white count at that time and was asked to follow up as an outpatient. However, despite being supposedly compliant with her prescriptions as well as discharged instructions 2 days prior, she still continued to have some increasing abdominal pain and went back to [place] where she had a repeat abdominal imaging, which unfortunately is not available to me at this time, which was reported by Dr. Chaudhary to be likely to have a perforation today, especially given she has increasing severity of abdominal pain with peritonitis symptoms such as rebound tenderness. She was sent to our facility for further evaluation and possible bowel surgery. She had been evaluated by Dr. Mejia who requested that we follow the patient given her multiple medical issues, although all of them currently are controlled, who mentioned that he will be admitting the patient to his service while Medicine will be consulting. In the ED, she had received Zosyn, normal saline bolus, lactated Ringer, fentanyl. PAST MEDICAL AND SURGICAL HISTORY: Diabetes; back pain; asthma; chronic bronchitis; history of cataracts; history of seizures with last seizures approximately about 5 years ago; melanoma, status post resection; history of basal cell carcinoma, status post resection; status post left knee melanoma resection; Mohs surgery; appendectomy; carpal tunnel release left side x2, right side x1; melanoma resection; right foot surgery; status post right total knee arthroplasty during her admission on 12/03/17 to 12/05/17. MEDICATIONS: Her home medications are as follows: 1. Aspirin 325 mg p.o. t.i.d. 2. Ocuvite Adults 50+ softgel 1 capsule q.a.m. 3. Calcium carbonate and vitamin D as well as vitamin K supplements. 4. Diltiazem 120 mg p.o. q.a.m. 5. Osteo Bi-Flex tablet. 6. Jardiance 25 mg p.o. q.a.m. 7. Linagliptin 5 mg p.o. q.h.s. 8. Meloxicam 15 mg p.o. q.a.m. 9. Selenium 100 mcg p.o. q.a.m. 10. Gabapentin 200 mg p.o. b.i.d. 11. Hydrocodone/acetaminophen 1 tab p.o. b.i.d. 12. Keppra 750 mg p.o. q.12. ALLERGIES: NOVOCAINE, unclear what type of symptoms she has when she is exposed to it. Denies any other allergies, neither to food nor medications. FAMILY HISTORY: Squamous cell carcinoma of the skin in her grandmother, she of its metastases. SOCIAL HISTORY: She denied any history of tobacco use, although unclear why she does have documented history of chronic bronchitis, history of positive for rare alcohol use. Lives with her and able to live on a one-story home. REVIEW OF SYSTEMS: Abdominal pain as described that she described is 10/10 pain. Denied any current headache, dizziness, fever, chills, nausea, vomiting, chest pain, shortness of breath, increased cough, no sputum production, diarrhea , constipation, pain and/or increased frequency and urination, myalgias, arthralgias, throat pain or new skin lesions. Rest of the 14-point review of systems other than what was described are otherwise unremarkable. PHYSICAL EXAM: Reveals the most recent vital signs of records with blood pressure of 133/77, 98.4 degrees Fahrenheit, 97 beats per minute heart rate, 18 per minute respiratory rate, saturating at 95% at 2 L nasal canula. General Appearance: The patient is awake, somewhat confused, but oriented x3, currently in abdominal pain, but responds appropriately to examiner. The patient is obese. HEENT: Normocephalic, atraumatic. PERRLA. Extraocular muscles intact. Negative for icterus. Moist oral mucosa. Negative throat erythema. Neck is soft, supple with no cervical lymphadenopathy. Difficult to assess JVD given obesity, but no hepatojugular reflux seen on exam. Heart: S1 , S2 within normal limits. Regular rate and rhythm. No murmurs, rubs, or gallops. Chest: Clear to auscultation bilaterally. Good air entry. No wheezes , rales, or rhonchi. Abdomen is soft, nondistended. Tender to touch with positive rebound tenderness. Extremities: No cyanosis, clubbing, or edema. Psychiatric: No active psychosis, depression, suicidal nor homicidal ideations. Skin is warm to touch. DIAGNOSTIC STUDIES/LAB DATA: Most recent and pertinent laboratories drawn back on 11/08/17 and 12/04/17 based on what the data available to us, we will ask nursing staff to obtain data from [place] and I have ordered new baseline laboratories today and they are still currently pending. Imaging study, presumably CT of the abdomen and pelvis showed possible perforation, reported to me by Dr. Chaudhary. ASSESSMENT AND PLAN: The patient is an 82-year-old lady with history of diabetes, asthma, and history of seizure disorder being, admitted for failed outpatient diverticulitis treatment with now possible perforation with rebound tenderness in the abdomen. 1. Bowel perforation. I have spoken with Dr. Mejia who mentions that he will immediately take her to OR. The patient has an RCRI of 1 and therefore has 0.9% MACE during the perioperative period and currently, all of her medical issues such as her diabetes, not requiring insulin as well as hypertension and asthma are all well controlled. I do not see any current active medical issues that will preclude the necessary surgery given her acute abdomen as described above. We will defer with further discussion of risks and benefits between the patient and surgeon for planned surgery. At this time, no additional advice. 2. History of asthma/chronic bronchitis. I am unclear whether she does have chronic bronchitis versus recurrent bronchitis, although from his H and P done by Ms. Ness, she documented her to have chronic bronchitis. At this time, we will place her on DuoNebs p.r.n. and will continue watchful waiting. 3. Seizure disorder. Continue Keppra. 4. Diabetes mellitus, noninsulin requiring. We will place the patient on insulin sliding scale. 5. Question of atrial fibrillation. Dr. Chaudhary mentioned that the patient has atrial fibrillation, although this was not previously documented in her most recent H and P. We will continue diltiazem, but given she is going to be in a perioperative period, we will divide diltiazem up and place her back on her long - acting diltiazem once the perioperative data is reassuring and she is confirmed to be hemodynamically stable as she is right now. 6. DVT prophylaxis. I would advice heparin at least 3 to 4 hours post surgery , but we will defer with surgery on this. 7. Disposition. Defer with surgery. We appreciate being asked to be involved in Ms. Meyers's care and management and we will follow along with you. [id number]/[facility] #: [id number] EARL
[2018-07-15] MEDS ORDERED: Acetaminophen IV 1GM/100ML * 100 ML ONE (16:02)
[2018-07-15] MEDS ORDERED: Insulin LISPRO* 1 UNITS UNIT SUBCUT ONE (16:45)
[2018-07-15] MEDS: Insulin LISPRO* 1 UNITS UNIT SUBCUT SCH ×3 (16:53→21:25)
--- NOTE | 2018-07-15 17:28 | PN ---
Hospitalist Progress Note Date of Service: 07/15/18 D/C'd PRN Gabapentin, PO Keppra, and Diltiazem given strict NPO orders post op. Placed pt on co-equivalent dose of Diltiazem gtt w/appropriate holding orders. Placed pt on IV Keppra until pt able to take PO meds.
[2018-07-15] MEDS ORDERED: Diltiazem IV VIAL* 125 MG in NS 0.9% 100 ML* 100 ML IV SCH (18:00)
[2018-07-15] MEDS ORDERED: Acetaminophen SUPP* 650 MG SUPP PR PRN (18:29)
[2018-07-15] MEDS ORDERED: Morphine VIAL* 4 MG/ML VIAL (1 ml vial) IV PRN ×2 (18:30)
[2018-07-15] MEDS: NS 0.9% 1000 ML* 1,000 ML IV SCH (18:35)
[2018-07-15] MEDS: levETIRAcetam IV* 750 MG in NS 0.9% 100 ML* 100 ML IVPB SCH (19:07)
[2018-07-15 19:54] LABS: ABS Basophils 0 10^3/ul (0-0.2); ABS Eosinophils 0 10^3/ul (0-0.6); ABS Lymphocytes 0.8 10^3/ul (1.0-4.8); ABS Monocytes 0.8 10^3/ul (0-0.8); ABS Neutrophils 13.8 10^3/ul (1.5-7.7); ABS Nucleated RBC 0 10^3/ul; Eosinophil % 0 %; Hematocrit 28 % (35-47); Hemoglobin 8.4 g/dl (12.0-16.0); Lymphocyte % 5.2 %; Mean Corpuscular HGB Conc 30 g/dl (31-36); Mean Corpuscular Hemoglobin 19 pg (27-31); Mean Corpuscular Volume 64 fL (80-97); Mean Platelet Volume 7.4 fL (7.4-10.4); Nucleated Red Blood Cells % 0; Platelet Count 334 10^3/ul (150-450); Red Blood Count 4.44 10^6/ul (4.00-5.40); Red Cell Distribution Width 19 % (10.5-15); White Blood Count 15.4 10^3/ul (3.5-10.8)
[2018-07-15 19:59] LABS: INR 1.22 (0.77-1.02)
[2018-07-15] MEDS: Pantoprazole IV* 40 MG IV SCH (20:20)
[2018-07-15] MEDS: Piperacillin/Tazobac ADVAN(*) 3.375 GM in NS 0.9% 100 ML* 100 ML IVPB SCH (23:51)
[2018-07-16] MEDS: levETIRAcetam IV* 750 MG in NS 0.9% 100 ML* 100 ML IVPB SCH ×2 (05:54→18:38)
[2018-07-16 06:12] LABS: INR 1.46 (0.77-1.02)
[2018-07-16 06:22] LABS: EGFR Non-African American 53.1 (>60)
[2018-07-16 06:26] LABS: Hematocrit 28 % (35-47); Hemoglobin 8.6 g/dl (12.0-16.0); Mean Corpuscular HGB Conc 30 g/dl (31-36); Mean Corpuscular Hemoglobin 19 pg (27-31); Mean Platelet Volume 7.3 fL (7.4-10.4); Platelet Count 346 10^3/ul (150-450); Red Blood Count 4.46 10^6/ul (4.00-5.40); Red Cell Distribution Width 20 % (10.5-15); White Blood Count 15.4 10^3/ul (3.5-10.8)
[2018-07-16] MEDS ORDERED: Diltiazem TAB* 30 MG PO SCH (07:00)
[2018-07-16] MEDS: Piperacillin/Tazobac ADVAN(*) 3.375 GM in NS 0.9% 100 ML* 100 ML IVPB SCH ×2 (07:02→17:00)
[2018-07-16] MEDS: Insulin LISPRO* 1 UNITS UNIT SUBCUT SCH ×5 (07:30→18:46)
[2018-07-16] MEDS ORDERED: NS 0.9% 500 ML* 500 ML IV ONE ×2 (08:17→13:36)
--- NOTE | 2018-07-16 08:37 | PN ---
Progress Note - Progress Note Date of Service: 07/16/18 SOAP: Subjective: Awake and alert this morning-feels much better No nausea and pain adequately controlled No CP or SOB Objective: Temp Pulse Resp BP Pulse Ox 98.9 F 96 13 129/56 97 07/16/18 07:40 07/16/18 07:30 07/16/18 07:42 07/16/18 07:30 07/16/18 08:09 Intake & Output 07/14/18 07/15/18 07/16/18 07/17/18 06:59 06:59 06:59 06:59 Intake Total 2471 Output Total 2675 75 Balance -204 -75 Weight 177 lb 7.554 oz Intake: IV Fluids 2156 LR 1800 ns 356 IVPB 100 ABX - ZOSYN 100 Medicated IV 215 keppra 110 zosyn 105 Output: NG Tube Drainage Amount 50 J Tube 30 HENRY #1 90 Montiel 1705 75 Residual 800 Montiel 16 Fr 800 PEX: Comfortable Awake and alert-oriented X 3 Lungs are clear Cor is RRR Abd is soft and slightly distended. No bowel sounds present. Dressing intact. HENRY with small amount of SG fluid in bulb, non-bilious Ext without edema Laboratory Results - last 24 hr 07/15/18 07/15/18 07/15/18 11:33 16:09 18:26 WBC RBC Hgb Hct MCV MCH MCHC RDW Plt Count MPV Neut % (Auto) Lymph % (Auto) Hunt % (Auto) Eos % (Auto) Baso % (Auto) Absolute Neuts (auto) Absolute Lymphs (auto) Absolute Monos (auto) Absolute Eos (auto) Absolute Basos (auto) Absolute Nucleated RBC Nucleated RBC % INR (Anticoag Therapy) Patient Temperature Respiration Rate O2 Delivery Device Ventilator Type Vent Mode FiO2 Inspiratory Time PEEP Pressure Support Pressure Control EPAP IPAP BiPAP Sodium Potassium Chloride Carbon Dioxide Anion Gap BUN Creatinine Est GFR ( Amer) Est GFR (Non-Af Amer) BUN/Creatinine Ratio Glucose POC Glucose (mg/dL) 185 H 214 H 183 H Lactic Acid Calcium Phosphorus Magnesium Total Bilirubin AST ALT Alkaline Phosphatase Total Protein Albumin Globulin Albumin/Globulin Ratio 07/15/18 07/15/18 07/15/18 19:40 19:40 19:40 WBC 15.4 H RBC 4.44 Hgb 8.4 L Hct 28 L MCV 64 L MCH 19 L MCHC 30 L RDW 19 H Plt Count 334 MPV 7.4 Neut % (Auto) 89.5 Lymph % (Auto) 5.2 Hunt % (Auto) 5.2 Eos % (Auto) 0 Baso % (Auto) 0.1 Absolute Neuts (auto) 13.8 H Absolute Lymphs (auto) 0.8 L Absolute Monos (auto) 0.8 Absolute Eos (auto) 0 Absolute Basos (auto) 0 Absolute Nucleated RBC 0 Nucleated RBC % 0 INR (Anticoag Therapy) 1.22 H Patient Temperature Respiration Rate O2 Delivery Device Ventilator Type Vent Mode FiO2 Inspiratory Time PEEP Pressure Support Pressure Control EPAP IPAP BiPAP Sodium 135 Potassium 4.1 Chloride 110 Carbon Dioxide 18 L Anion Gap 7 BUN 16 Creatinine 0.94 Est GFR ( Amer) 69.0 Est GFR (Non-Af Amer) 57.0 BUN/Creatinine Ratio 17.0 Glucose 143 H POC Glucose (mg/dL) Lactic Acid Calcium 7.7 L Phosphorus 3.7 Magnesium 1.9 Total Bilirubin 0.30 AST 57 H ALT 38 Alkaline Phosphatase 51 Total Protein 6.6 Albumin 2.8 L Globulin 3.8 Albumin/Globulin Ratio 0.7 L 07/15/18 07/16/18 07/16/18 20:51 05:45 05:45 WBC 15.4 H RBC 4.46 Hgb 8.6 L Hct 28 L MCV MCH 19 L MCHC 30 L RDW 20 H Plt Count 346 MPV 7.3 L Neut % (Auto) Lymph % (Auto) Hunt % (Auto) Eos % (Auto) Baso % (Auto) Absolute Neuts (auto) Absolute Lymphs (auto) Absolute Monos (auto) Absolute Eos (auto) Absolute Basos (auto) Absolute Nucleated RBC Nucleated RBC % INR (Anticoag Therapy) Patient Temperature Respiration Rate O2 Delivery Device Ventilator Type Vent Mode FiO2 Inspiratory Time PEEP Pressure Support Pressure Control EPAP IPAP BiPAP Sodium 138 Potassium 4.2 Chloride 112 H Carbon Dioxide 14 L* Anion Gap 12 H BUN 18 Creatinine 1.00 H Est GFR ( Amer) 64.2 Est GFR (Non-Af Amer) 53.1 BUN/Creatinine Ratio 18.0 Glucose 126 H POC Glucose (mg/dL) 151 H Lactic Acid Calcium 8.1 L Phosphorus 3.3 Magnesium 2.1 Total Bilirubin 0.40 AST 40 H ALT 32 Alkaline Phosphatase 52 Total Protein 6.6 Albumin 2.7 L Globulin 3.9 Albumin/Globulin Ratio 0.7 L 07/16/18 07/16/18 07/16/18 05:45 07:10 07:25 WBC RBC Hgb Hct MCV MCH MCHC RDW Plt Count MPV Neut % (Auto) Lymph % (Auto) Hunt % (Auto) Eos % (Auto) Baso % (Auto) Absolute Neuts (auto) Absolute Lymphs (auto) Absolute Monos (auto) Absolute Eos (auto) Absolute Basos (auto) Absolute Nucleated RBC Nucleated RBC % INR (Anticoag Therapy) 1.46 H Patient Temperature Respiration Rate O2 Delivery Device Ventilator Type Vent Mode FiO2 Inspiratory Time PEEP Pressure Support Pressure Control EPAP IPAP BiPAP Sodium Potassium Chloride Carbon Dioxide Anion Gap BUN Creatinine Est GFR ( Amer) Est GFR (Non-Af Amer) BUN/Creatinine Ratio Glucose POC Glucose (mg/dL) 133 H Lactic Acid 0.7 Calcium Phosphorus Magnesium Total Bilirubin AST ALT Alkaline Phosphatase Total Protein Albumin Globulin Albumin/Globulin Ratio 07/16/18 08:15 WBC RBC Hgb Hct MCV MCH MCHC RDW Plt Count MPV Neut % (Auto) Lymph % (Auto) Hunt % (Auto) Eos % (Auto) Baso % (Auto) Absolute Neuts (auto) Absolute Lymphs (auto) Absolute Monos (auto) Absolute Eos (auto) Absolute Basos (auto) Absolute Nucleated RBC Nucleated RBC % INR (Anticoag Therapy) Patient Temperature Not Reportable Respiration Rate Not Reportable O2 Delivery Device 2l nc Ventilator Type Not Reportable Vent Mode Not Reportable FiO2 Not Reportable Inspiratory Time Not Reportable PEEP Not Reportable Pressure Support Not Reportable Pressure Control Not Reportable EPAP Not Reportable IPAP Not Reportable BiPAP Not Reportable Sodium Potassium Chloride Carbon Dioxide Anion Gap BUN Creatinine Est GFR ( Amer) Est GFR (Non-Af Amer) BUN/Creatinine Ratio Glucose POC Glucose (mg/dL) Lactic Acid Calcium Phosphorus Magnesium Total Bilirubin AST ALT Alkaline Phosphatase Total Protein Albumin Globulin Albumin/Globulin Ratio Assessment: POD#1 s/p laparoscopic repair of perforated pyloric ulcer with Malick patch CO2 low on BMP, Lactic acid normal this morning, adequate urine output, slight tachycardia Anemia with low MCV-review of records last 8-9 months shows this to be chronic. Hgb on presentation to [facility] yesterday was 9.8 prior to fluid resuscitation and OR. MCV in 60-70's recently. H/H stable from last night post- op Multiple medical problems Plan: Check ABG NS IV bolus Continue IV zosyn PPI NGT to suction-strict NPO OOB and pulmonary toilet Discuss with hospitalist regarding tx to [facility] Montiel to monitor urine output Hold on heparin for now-follow H/H Recheck labs in AM
[2018-07-16 08:42] LABS: ABS Basophils 0 10^3/ul (0-0.2); ABS Eosinophils 0 10^3/ul (0-0.6); ABS Lymphocytes 0.8 10^3/ul (1.0-4.8); ABS Monocytes 1.1 10^3/ul (0-0.8); ABS Neutrophils 13.5 10^3/ul (1.5-7.7); ABS Nucleated RBC 0 10^3/ul; Eosinophil % 0 %; Lymphocyte % 5.2 %; Mean Corpuscular Volume 64 fL (80-97); Nucleated Red Blood Cells % 0
[2018-07-16] MEDS: Metoprolol Tartrate IV* 1 MG/ML 5 ML VIAL IV PRN ×3 (14:40→22:06)
--- NOTE | 2018-07-16 15:57 | OP ---
CC: Dr. Dex Campos, Primary Care Medicine at [facility] * DATE OF OPERATION: 07/15/18 - ROOM #[id number] DATE OF : 35 SURGEON: Yuri Mejia M.D. INSOLE BUFFER: Jair Meyer MD ANESTHESIOLOGIST: Dr. Campos. ANESTHESIA: General with local. PRE-OP DIAGNOSIS: Pneumoperitoneum with peritonitis. POST-OP DIAGNOSIS: 1. Pneumoperitoneum with peritonitis. 2. Perforated peptic ulcer at the pylorus. OPERATIVE PROCEDURE: Laparoscopic Malick patch repair of perforated pyloric anterior ulcer. BRIEF HISTORY: Ms. Meyers is an 82-year-old woman, who developed the severe onset of epigastric abdominal pain earlier this morning and was transferred to the emergency room at [facility]. The preoperative CT scan shows the pneumoperitoneum, mainly in the right upper quadrant as well as fluid. On the exam, she had generalized peritonitis and is now being taken to the operating room emergently. ESTIMATED BLOOD LOSS: Minimal. IV FLUIDS: 1.5 liter crystalloid. WOUND CLASSIFICATION: IV. SPECIMENS: None. COMPLICATIONS: None. DRAINS: #10 HENRY drain in the right upper quadrant and in the epigastrium. DESCRIPTION OF PROCEDURE: Written informed consent was obtained, the patient had received IV antibiotics and the abdomen was marked with indelible ink. Sequential compression devices and warming blanket were applied. General anesthesia was administered and the abdomen was prepped and draped in usual sterile fashion. Time-out verification was completed. Initially, a vertical incision was made several fingerbreadths above the umbilicus, then peritoneal cavity was entered on a direct vision. A 12-mm blunt port was inserted. The abdomen was insufflated to 15 mmHg. Under direct vision, an 11-mm epigastric port was placed and a 5-mm port was placed in the left upper quadrant and second 5-mm port was placed in the right mid upper abdomen. It was obvious that there was a bilious fluid and fibrinous exudate between the transverse colon and liver and stomach, and there was fluid up above the liver as well. The gallbladder appeared to be unremarkable. There was no evidence of significant fluid in the lower pelvis and I noted no inflammatory process. We were able to peel some of the small bowel omentum off the anterior abdominal wall and we were able to identify a small perforation, probably 5 to 6 mm in size what appeared to be just about the pylorus on the anterior surface of the stomach and duodenum. This was the obvious source of perforation. I irrigated thoroughly with 3 to 4 liters of saline, mainly in the right upper quadrant and then proceeded to place three separate 2-0 silk sutures through the perforation in the usual fashion in preparation for an omental patch to be placed. The middle suture was used to close the perforation and the other 2 sutures that were placed proximally and distally to the perforation were left untied with long tails. We then evaluated the omentum. There was an existing incisional hernia, which contained significant portion of the greater omentum and this was taken down with the LigaSure device. There was no bowel involvement with the hernia noted. We then created a small "tongue" of greater omentum using the LigaSure device to bring this portion up to cover the perforation. There was under no tension and was placed up over the perforation site and used the long 2-0 silk ties to tie this down to cover the perforation site using this as the Malick patch. It covered the area well. Once this was completed, we placed the #10 HENRY drain in the right upper quadrant extending along the midline in the area of the repair. All ports were removed under direct vision of the camera. There was no abdominal wall bleeding. The umbilical fascia was closed with interrupted 0 Vicryl suture. The skin incisions were approximated with subcuticular 4-0 Vicryl suture. Steri- Strips were applied. The patient tolerated the procedure well and was taken to the recovery room in stable condition. [id number]/[facility] #: [id number] EARL
--- NOTE | 2018-07-16 19:07 | PN ---
Subjective Date of Service: 07/16/18 Interval History: Patient seen and examined. Appears tangential in thinking. Tolerating NG tube, states no nausea and no vomiting. Denies fever or chills, no SOB or chest pain. Objective Active Medications: Acetaminophen (Tylenol Supp*) 650 mg VA Q4H PRN PRN Reason: mild pain or fever Albuterol/Ipratropium (Duoneb (Albuterol 2.5 Mg/Ipratropium 0.5 Mg)) 1 neb INH Q4H PRN PRN Reason: SOB/WHEEZING Dextrose (D50w Syringe 50 Ml*) 12.5 gm IV PUSH .FOR FS < 60 - SS PRN PRN Reason: FS < 60 Sodium Chloride (Ns 0.9% 1000 Ml*) 1,000 mls @ 125 mls/hr IV PER RATE [facility] Last Admin: 07/15/18 18:35 Dose: 125 mls/hr Levetiracetam 750 mg/ Sodium (Chloride) 107.5 mls @ 440 mls/hr IVPB Q12H [facility] Last Admin: 07/16/18 18:38 Dose: 440 mls/hr Piperacillin Sod/Tazobactam (Sod 3.375 gm/ Sodium Chloride) 100 mls @ 25 mls/ hr IVPB Q8H [facility] Last Admin: 07/16/18 17:00 Dose: 25 mls/hr Insulin Human Lispro (Humalog*) 0 units SUBCUT Q6H [facility]; Protocol Last Admin: 07/16/18 18:46 Dose: Not Given Metoprolol Tartrate (Lopressor Iv*) 5 mg IV Q4HR PRN PRN Reason: HEART RATE/PULSE Last Admin: 07/16/18 14:40 Dose: 5 mg Morphine Sulfate (Morphine Vial*) 2 mg IV Q2H PRN PRN Reason: moderate pain Last Admin: 07/15/18 22:31 Dose: 2 mg Morphine Sulfate (Morphine Vial*) 4 mg IV Q2H PRN PRN Reason: moderately severe pain Ondansetron HCl (Zofran Inj*) 4 mg IV Q6H PRN PRN Reason: NAUSEA Pantoprazole Sodium (Protonix Iv*) 40 mg IV Q24H [facility] Last Admin: 07/15/18 20:20 Dose: 40 mg Vital Signs - 8 hr 07/16/18 07/16/18 11:32 16:07 Temperature 97.6 F 98.0 F Pulse Rate 98 96 Respiratory 16 18 Rate Blood Pressure 145/50 142/68 (mmHg) O2 Sat by Pulse 99 97 Oximetry Oxygen Devices in Use Now: Nasal Cannula Appearance: alert, NAD Eyes: No Scleral Icterus, PERRLA Ears/Nose/Mouth/Throat: Mucous Membranes Moist Neck: NL Appearance and Movements; NL JVP, Trachea Midline Respiratory: Symmetrical Chest Expansion and Respiratory Effort, Clear to Auscultation Cardiovascular: NL Sounds; No Murmurs; No JVD, RRR Abdominal: - - diffuse tenderness, hypoactive BS Extremities: No Edema, No Clubbing, Cyanosis Skin: No Rash or Ulcers Neurological: Alert and Oriented x 3 Lines/Tubes/Other Access: Clean, Dry and Intact Naso-enteral Tube - NG tube left nare to intermit suction Nutrition: - - NPO Result Diagrams: 07/16/18 05:45 07/16/18 05:45 Microbiology and Other Data: Microbiology 07/15/18 18:26 Nasal Screen MRSA (PCR) - Final Nasal Mrsa Not Detected Assess/Plan/Problems-Billing Assessment: This is an 82 year old female that presents with abdominal pain, found to have perforated pyloric ulcer, s/p surgical repair. - Patient Problems (1) Perforated ulcer Code(s): K27.5 - CHRONIC OR UNSP PEPTIC ULCER, SITE UNSP, WITH PERFORATION SNOMED Code(s): 28398745 Comment: - Lap repair of perforated pyloric ulcer POD1 - POC as per surgery - Continue NG tube and NPO - Pain control - Zosyn per pharmacy - PPI - IVF (2) Diabetes Code(s): E11.9 - TYPE 2 DIABETES MELLITUS WITHOUT COMPLICATIONS SNOMED Code(s) : 98616387 Comment: - Continue Lispro SS - Hold Jardiance and linagliptin while NPO, may resume at discharge (3) Anemia Code(s): D64.9 - ANEMIA, UNSPECIFIED SNOMED Code(s): 493311881 Comment: - appears to be acute on chronic - H&H stable - Transfuse if needed given cardiac history, recommend HgB>8.0 - Outpatient follow up (4) Lumbar spinal stenosis Code(s): M48.06 - SPINAL STENOSIS, LUMBAR REGION * DO NOT USE * SNOMED Code(s) : 45325941 Comment: - With chronic pain and history of high dose ASA and NSAIDS - Supportive care, PT eval when stable (5) Epilepsy Code(s): G40.909 - EPILEPSY, UNSP, NOT INTRACTABLE, WITHOUT STATUS EPILEPTICUS SNOMED Code(s): 04198178 Comment: - Continue Keppra IV while NPO (6) Paroxysmal atrial fibrillation Code(s): I48.0 - PAROXYSMAL ATRIAL FIBRILLATION SNOMED Code(s): 605360258 Comment: - Continue tele, had tachycardia today but remains in sinus - IV lopressor while NPO - Restart cardizem and AC when no longer NPO and clear by surgery (7) DVT prophylaxis Code(s): FMI4567 - SNOMED Code(s): 829516838 Comment: - SCDS only (8) Full code status Code(s): Z78.9 - OTHER SPECIFIED HEALTH STATUS SNOMED Code(s): 806014793 Comment: Status and Disposition: Inpatient, dispo per surgery.
[2018-07-16] MEDS: Pantoprazole IV* 40 MG IV SCH (20:51)
--- NOTE | 2018-07-16 21:53 | PN ---
Progress Note - Progress Note Date of Service: 07/16/18 Note: Paged - this is patient's second episode of a rapid heart rate. Patient confused and agitated and they are having difficulty giving her IV lopressor. Will get EKG, transfer to Tele, give lopressor, check BMP and Mg. May need haldol if worsening agitation
[2018-07-16] MEDS: NS 0.9% 1000 ML* 1,000 ML IV SCH (22:03)
[2018-07-16] MEDS ORDERED: Haloperidol INJ IV/IM* 5 MG/ML AMP ONE (22:16)
[2018-07-16 23:21] LABS: EGFR Non-African American 63.2 (>60)
[2018-07-17] MEDS: Piperacillin/Tazobac ADVAN(*) 3.375 GM in NS 0.9% 100 ML* 100 ML IVPB SCH ×2 (00:17→07:40)
[2018-07-17] MEDS: Insulin LISPRO* 1 UNITS UNIT SUBCUT SCH ×5 (00:22→23:57)
[2018-07-17] MEDS: Haloperidol INJ IV/IM* 5 MG/ML AMP IV SLOW PU PRN (03:22)
[2018-07-17] MEDS: levETIRAcetam IV* 750 MG in NS 0.9% 100 ML* 100 ML IVPB SCH ×2 (05:34→18:16)
[2018-07-17 06:14] LABS: ABS Basophils 0 10^3/ul (0-0.2); ABS Eosinophils 0 10^3/ul (0-0.6); ABS Lymphocytes 1.5 10^3/ul (1.0-4.8); ABS Monocytes 1.1 10^3/ul (0-0.8); ABS Neutrophils 11.4 10^3/ul (1.5-7.7); ABS Nucleated RBC 0 10^3/ul; Eosinophil % 0.1 %; Hematocrit 26 % (35-47); Hemoglobin 7.7 g/dl (12.0-16.0); Lymphocyte % 10.6 %; Mean Corpuscular HGB Conc 30 g/dl (31-36); Mean Corpuscular Hemoglobin 19 pg (27-31); Mean Corpuscular Volume 64 fL (80-97); Mean Platelet Volume 7.4 fL (7.4-10.4); Nucleated Red Blood Cells % 0; Platelet Count 348 10^3/ul (150-450); Red Cell Distribution Width 20 % (10.5-15)
[2018-07-17] MEDS: NS 0.9% 1000 ML* 1,000 ML IV SCH (07:40)
[2018-07-17 07:43] LABS: EGFR Non-African American 67.7 (>60)
[2018-07-17] MEDS: Ciprofloxacin 400MG IVPREMIX(* 400 MG/200 ML BAG IVPB SCH ×2 (09:21→21:30)
[2018-07-17] MEDS: Sodium Bicarbonate 8.4% IV* 150 MEQ in D5W 1000 ML BAG* 1,000 ML IVPB SCH ×2 (10:24→23:53)
--- NOTE | 2018-07-17 10:36 | PN ---
Progress Note - Progress Note Date of Service: 07/17/18 SOAP: Subjective: Events of last night noted She is relaxed this morning, awake and alert-a little confused No complaints of pain or nausea Objective: Temp Pulse Resp BP Pulse Ox 97.5 F 78 18 142/54 95 07/17/18 03:18 07/17/18 08:29 07/17/18 08:29 07/17/18 07:52 07/17/18 08:29 Intake & Output 07/15/18 07/16/18 07/17/18 07/18/18 06:59 06:59 06:59 06:59 Intake Total 2471 2268 Output Total 2675 1958 825 Balance -204 310 -825 Weight 177 lb 7.554 oz Intake: IV Fluids 2156 2153 ABX - ZOSYN 200 LR 1800 keppra 110 ns 356 1843 IVPB 100 115 ABX - ZOSYN 100 keppra 115 Medicated IV 215 keppra 110 zosyn 105 Oral 0 Output: NG Tube Drainage Amount 50 350 J Tube 30 HENRY #1 90 58 Red 1705 1550 825 Residual 800 Red 16 Fr 800 Other: # Bowel Movements 0 PEX: Comfortable in chair-NAD Lungs are clear, decreased breath sounds at the bases Cor is RRR Abd is soft and slightly distended. Bowel sounds are not present. HENRY in place with small amount of SG drainage, non-bilious. Incisions are clean and dry No ext edema Laboratory Results - last 24 hr 07/16/18 07/16/18 07/16/18 11:54 16:17 18:37 WBC RBC Hgb Hct MCV MCH MCHC RDW Plt Count MPV Neut % (Auto) Lymph % (Auto) Wheeler % (Auto) Eos % (Auto) Baso % (Auto) Absolute Neuts (auto) Absolute Lymphs (auto) Absolute Monos (auto) Absolute Eos (auto) Absolute Basos (auto) Absolute Nucleated RBC Nucleated RBC % ABG pH ABG pCO2 ABG pO2 ABG HCO3 ABG O2 Saturation ABG Base Excess Sodium Potassium Chloride Carbon Dioxide Anion Gap BUN Creatinine Est GFR ( Amer) Est GFR (Non-Af Amer) BUN/Creatinine Ratio Glucose POC Glucose (mg/dL) 131 H 130 H Lactic Acid 0.8 Calcium Magnesium 07/16/18 07/16/18 07/17/18 22:56 23:48 00:16 WBC RBC Hgb Hct MCV MCH MCHC RDW Plt Count MPV Neut % (Auto) Lymph % (Auto) Wheeler % (Auto) Eos % (Auto) Baso % (Auto) Absolute Neuts (auto) Absolute Lymphs (auto) Absolute Monos (auto) Absolute Eos (auto) Absolute Basos (auto) Absolute Nucleated RBC Nucleated RBC % ABG pH ABG pCO2 ABG pO2 ABG HCO3 ABG O2 Saturation ABG Base Excess Sodium 139 Potassium 3.8 Chloride 114 H Carbon Dioxide 12 L* Anion Gap 13 H BUN 21 Creatinine 0.86 Est GFR ( Amer) 76.4 Est GFR (Non-Af Amer) 63.2 BUN/Creatinine Ratio 24.4 H Glucose 133 H POC Glucose (mg/dL) 123 H Lactic Acid 0.9 Calcium 8.3 L Magnesium 2.1 07/17/18 07/17/18 07/17/18 00:18 05:25 05:25 WBC 14.0 H RBC 4.00 Hgb 7.7 L Hct 26 L MCV 64 L MCH 19 L MCHC 30 L RDW 20 H Plt Count 348 MPV 7.4 Neut % (Auto) 81.5 Lymph % (Auto) 10.6 Wheeler % (Auto) 7.6 Eos % (Auto) 0.1 Baso % (Auto) 0.2 Absolute Neuts (auto) 11.4 H Absolute Lymphs (auto) 1.5 Absolute Monos (auto) 1.1 H Absolute Eos (auto) 0 Absolute Basos (auto) 0 Absolute Nucleated RBC 0 Nucleated RBC % 0 ABG pH 7.34 L ABG pCO2 24 L ABG pO2 81 ABG HCO3 15.9 L ABG O2 Saturation 97.8 ABG Base Excess -11.5 L Sodium 138 Potassium 3.9 Chloride 118 H Carbon Dioxide 14 L* Anion Gap 6 BUN 20 Creatinine 0.81 Est GFR ( Amer) 81.9 Est GFR (Non-Af Amer) 67.7 BUN/Creatinine Ratio 24.7 H Glucose 104 H POC Glucose (mg/dL) Lactic Acid Calcium 8.1 L Magnesium 07/17/18 05:25 WBC RBC Hgb Hct MCV MCH MCHC RDW Plt Count MPV Neut % (Auto) Lymph % (Auto) Wheeler % (Auto) Eos % (Auto) Baso % (Auto) Absolute Neuts (auto) Absolute Lymphs (auto) Absolute Monos (auto) Absolute Eos (auto) Absolute Basos (auto) Absolute Nucleated RBC Nucleated RBC % ABG pH ABG pCO2 ABG pO2 ABG HCO3 ABG O2 Saturation ABG Base Excess Sodium Potassium Chloride Carbon Dioxide Anion Gap BUN Creatinine Est GFR ( Amer) Est GFR (Non-Af Amer) BUN/Creatinine Ratio Glucose POC Glucose (mg/dL) 120 H Lactic Acid Calcium Magnesium Assessment: POD# 2 s/p laparoscopic repair of perforated gastroduodenal (pyloric) ulcer Anemia Delerium Metabolic acidosis-etiology at present not clear. Hemodynamically stable, normal renal function, blood sugars under control, minimal GI losses and sepsis appears to be improving. Tachycardia-resolved Leukocytosis-improving Plan: Change IVF to D5W with bicarb Continue IV abx-switched to be compatible with IVF NGT and HENRY drainage-keep NPO Follow H/H-no sign of active bleeding Hold on subq heparin-SCD's Continue red drainage another 24 hours to monitor urine output. UGI tomorrow to evaluate repair Recheck labs in AM. All of her care was discussed in detail with her and daughter yesterday and questions were answered.
[2018-07-17] MEDS: metroNIDAZOLE IV 500 MG/100ML* 500 MG/100 ML BAG IVPB SCH ×2 (11:06→16:54)
--- NOTE | 2018-07-17 15:01 | PN ---
Subjective Date of Service: 07/17/18 Interval History: Ms. Meyers is feeling ok this morning. She was quite tired on my exam. She denies pain. Denies CP, SOB, N/V/D, dizziness. Nursing reports that she is having episodes of agitation. Family filled out new MOLST form. Family History: Unchanged from Admission Social History: Unchanged from Admission Past Medical History: Unchanged from Admission Objective Active Medications: Acetaminophen (Tylenol Supp*) 650 mg IN Q4H PRN mild pain or fever Albuterol/Ipratropium (Duoneb (Albuterol 2.5 Mg/Ipratropium 0.5 Mg)) 1 neb INH Q4H PRN SOB/WHEEZING Dextrose (D50w Syringe 50 Ml*) 12.5 gm IV PUSH .FOR FS < 60 - SS PRN FS < 60 Haloperidol Lactate (Haldol Inj Iv/Im*) 5 mg IV SLOW PU Q6H PRN AGITATION Levetiracetam 750 mg/ Sodium (Chloride) 107.5 mls @ 440 mls/hr IVPB Q12H [facility] Ciprofloxacin/Dextrose (Cipro 400 Mg Ivpremix(*)) 400 mg in 200 mls @ 200 mls/ hr IVPB Q12H [facility] Metronidazole/Sodium Chloride (Flagyl 500 Mg Ivpb*) 500 mg in 100 mls @ 100 mls /hr IVPB Q8H [facility] Sodium Bicarbonate 150 meq/ (Dextrose) 1,150 mls @ 125 mls/hr IVPB Q9H [facility] Insulin Human Lispro (Humalog*) 0 units SUBCUT Q6H [facility]; Protocol Metoprolol Tartrate (Lopressor Iv*) 5 mg IV Q4HR PRN HEART RATE/PULSE Morphine Sulfate (Morphine Vial*) 2 mg IV Q2H PRN moderate pain Morphine Sulfate (Morphine Vial*) 4 mg IV Q2H PRN moderately severe pain Ondansetron HCl (Zofran Inj*) 4 mg IV Q6H PRN NAUSEA Pantoprazole Sodium (Protonix Iv*) 40 mg IV Q24H [facility] Vital Signs - 8 hr 07/17/18 07/17/18 07/17/18 07:18 07:52 08:29 Temperature Pulse Rate 93 78 Respiratory 20 18 Rate Blood Pressure 142/54 (mmHg) O2 Sat by Pulse 95 Oximetry 07/17/18 12:35 Temperature 98.3 F Pulse Rate 98 Respiratory 18 Rate Blood Pressure 144/60 (mmHg) O2 Sat by Pulse 100 Oximetry Oxygen Devices in Use Now: Nasal Cannula - 1.5L Appearance: Elderly female sitting in chair in NAD Eyes: No Scleral Icterus Ears/Nose/Mouth/Throat: Mucous Membranes Moist Neck: NL Appearance and Movements; NL JVP Respiratory: Symmetrical Chest Expansion and Respiratory Effort, Clear to Auscultation Cardiovascular: NL Sounds; No Murmurs; No JVD, RRR Abdominal: NL Sounds; No Tenderness; No Distention Skin: - - Multiple abd surgical sites Neurological: Alert and Oriented x 3 Lines/Tubes/Other Access: Clean, Dry and Intact Montiel, Clean, Dry and Intact Peripheral IV, Clean, Dry and Intact Other Access - NG Nutrition: Taking PO's Result Diagrams: 07/17/18 05:25 07/17/18 05:25 Assess/Plan/Problems-Billing Assessment: This is an 82 year old female that presents with abdominal pain, found to have perforated pyloric ulcer, s/p surgical repair. - Patient Problems (1) Perforated ulcer Current Visit: Yes Status: Acute Code(s): K27.5 - CHRONIC OR UNSP PEPTIC ULCER, SITE UNSP, WITH PERFORATION SNOMED Code(s): 07046920 Comment: - Lap repair of perforated pyloric ulcer POD 2 - Management per surgery - Continue NG tube and NPO - Continue morphine, cipro, flagyl, protonix - Change IVF to d5w w/ bicarb for acidosis (2) Anemia Current Visit: Yes Status: Acute Code(s): D64.9 - ANEMIA, UNSPECIFIED SNOMED Code(s): 198402967 Comment: - Appears to be acute on chronic - H&H stable - Transfuse if needed given cardiac history, recommend HgB >8.0 - 1 unit PRBC today for Hgb 7.7 (3) Diabetes mellitus, type 2 Current Visit: Yes Status: Acute Comment: - Hold jardiance and linagliptin - Continue lispro SS (4) Paroxysmal atrial fibrillation Current Visit: No Status: Chronic Code(s): I48.0 - PAROXYSMAL ATRIAL FIBRILLATION SNOMED Code(s): 757223504 Comment: - Continue tele, had tachycardia today but remains in sinus - IV lopressor while NPO - Restart cardizem when no longer NPO (5) Epilepsy Current Visit: No Status: Chronic Code(s): G40.909 - EPILEPSY, UNSP, NOT INTRACTABLE, WITHOUT STATUS EPILEPTICUS SNOMED Code(s): 74482600 Comment: - Continue Keppra IV while NPO (6) GERD (gastroesophageal reflux disease) Current Visit: No Status: Chronic Code(s): K21.9 - GASTRO-ESOPHAGEAL REFLUX DISEASE WITHOUT ESOPHAGITIS SNOMED Code(s): 435791832 Comment: - Continue protonix (7) Lumbar spinal stenosis Current Visit: No Status: Acute Code(s): M48.06 - SPINAL STENOSIS, LUMBAR REGION * DO NOT USE * SNOMED Code(s): 43453217 Comment: - Chronic pain and history of high dose ASA and NSAIDS - Supportive care, PT eval when stable (8) DVT prophylaxis Current Visit: Yes Status: Acute Code(s): WWY5576 - SNOMED Code(s): 208056549 Comment: - SCDs only (9) DNR (do not resuscitate) Current Visit: Yes Status: Acute Status and Disposition: Inpatient, dispo per surgery. Attending: Aydee Gil
[2018-07-17] MEDS: Pantoprazole IV* 40 MG IV SCH (19:32)
[2018-07-18] MEDS: metroNIDAZOLE IV 500 MG/100ML* 500 MG/100 ML BAG IVPB SCH (01:37)
[2018-07-18 05:35] LABS: Hematocrit 29 % (35-47); Hemoglobin 9.4 g/dl (12.0-16.0); Mean Corpuscular HGB Conc 32 g/dl (31-36); Mean Corpuscular Hemoglobin 21 pg (27-31); Mean Corpuscular Volume 65 fL (80-97); Mean Platelet Volume 7.2 fL (7.4-10.4); Platelet Count 347 10^3/ul (150-450); Red Blood Count 4.54 10^6/ul (4.00-5.40); Red Cell Distribution Width 24 % (10.5-15); White Blood Count 12.6 10^3/ul (3.5-10.8)
[2018-07-18] MEDS: levETIRAcetam IV* 750 MG in NS 0.9% 100 ML* 100 ML IVPB SCH ×2 (05:36→16:58)
[2018-07-18 05:39] LABS: EGFR Non-African American 88.8 (>60)
[2018-07-18] MEDS: Insulin LISPRO* 1 UNITS UNIT SUBCUT SCH ×3 (05:48→17:02)
[2018-07-18] MEDS ORDERED: Potassium Chloride LIQUID* 20 MEQ PACKET PO ONE (07:11)
[2018-07-18] MEDS: KCL 20 MEQ/100 ML IVPREMIX* 20 MEQ/100 ML BAG IV SCH ×2 (07:50→10:39)
--- NOTE | 2018-07-18 08:55 | PN ---
Progress Note - Progress Note Date of Service: 07/18/18 SOAP: Subjective: Quiet night-she feels better Minimal pain Passing some flatus Objective: Temp Pulse Resp BP Pulse Ox 98.8 F 93 20 139/62 95 07/18/18 07:46 07/18/18 07:46 07/18/18 07:46 07/18/18 07:46 07/18/18 07:46 Intake & Output 07/16/18 07/17/18 07/18/18 07/19/18 06:59 06:59 06:59 06:59 Intake Total 2471 2268 3204 Output Total 2675 1958 3580 Balance -204 310 -376 Weight 177 lb 7.554 oz Intake: IV Fluids 2156 2153 2438 ABX - CIPROFLOXACIN 20 ABX - FLAGYL 40 ABX - ZOSYN 200 LR 1800 102 blood products 338 keppra 110 ns 356 1843 sodium bicarb 1938 IVPB 100 115 766 ABX - CIPROFLOXACIN 450 ABX - FLAGYL 316 ABX - ZOSYN 100 keppra 115 Medicated IV 215 keppra 110 zosyn 105 Oral 0 0 Output: NG Tube Drainage Amount 50 350 300 NJT 300 J Tube 30 HENRY #1 90 58 55 Urine 0 Red 1705 1550 3225 Residual 800 Red 16 Fr 800 Other: # Bowel Movements 0 0 PEX: Comfortable Lungs are clear, decreased breath sounds at bases Abd is soft and slightly distended. Incisions CDI, HENRY with small amount of SG fluid, non-bilious fluid Ext without edema Laboratory Results - last 24 hr 07/17/18 07/17/18 07/17/18 05:25 11:29 18:14 WBC RBC Hgb Hct MCV MCH MCHC RDW Plt Count MPV Sodium Potassium Chloride Carbon Dioxide Anion Gap BUN Creatinine Est GFR ( Amer) Est GFR (Non-Af Amer) BUN/Creatinine Ratio Glucose POC Glucose (mg/dL) 152 H 122 H Calcium Total Bilirubin AST ALT Alkaline Phosphatase Total Protein Albumin Globulin Albumin/Globulin Ratio Blood Type B Positive Antibody Screen Negative Crossmatch See Detail 07/17/18 07/18/18 07/18/18 23:53 05:11 05:11 WBC 12.6 H RBC 4.54 Hgb 9.4 L Hct 29 L MCV 65 L MCH 21 L MCHC 32 RDW 24 H Plt Count 347 MPV 7.2 L Sodium 137 Potassium 2.9 L Chloride 105 Carbon Dioxide 24 Anion Gap 8 BUN 11 Creatinine 0.64 Est GFR ( Amer) 107.5 Est GFR (Non-Af Amer) 88.8 BUN/Creatinine Ratio 17.2 Glucose 142 H POC Glucose (mg/dL) 150 H Calcium 7.8 L Total Bilirubin 0.40 AST 13 ALT 18 Alkaline Phosphatase 57 Total Protein 6.3 L Albumin 2.5 L Globulin 3.8 Albumin/Globulin Ratio 0.7 L Blood Type Antibody Screen Crossmatch 07/18/18 05:34 WBC RBC Hgb Hct MCV MCH MCHC RDW Plt Count MPV Sodium Potassium Chloride Carbon Dioxide Anion Gap BUN Creatinine Est GFR ( Amer) Est GFR (Non-Af Amer) BUN/Creatinine Ratio Glucose POC Glucose (mg/dL) 159 H Calcium Total Bilirubin AST ALT Alkaline Phosphatase Total Protein Albumin Globulin Albumin/Globulin Ratio Blood Type Antibody Screen Crossmatch Assessment: POD# 3 s/p laparoscopic repair perforated pyloric ulcer- Acidosis-resolved WBC decreased Hypokalemia Plan: UGI today-if no leak, D/C NGT Replete K+\ Stop bicarb in IVF, reduce IVF D/C red Increase activity, pulmonary toilet Recheck labs in AM
[2018-07-18] MEDS: Sodium Bicarbonate 8.4% IV* 150 MEQ in D5W 1000 ML BAG* 1,000 ML IVPB SCH (08:58)
[2018-07-18] MEDS ORDERED: NS 0.9% w/ 20 Meq KCL 1000 ML* 1,000 ML IV SCH (09:00)
[2018-07-18] MEDS: Piperacillin/Tazobac ADVAN(*) 3.375 GM in NS 0.9% 100 ML* 100 ML IVPB SCH ×2 (09:47→17:33)
--- NOTE | 2018-07-18 14:37 | PN ---
Subjective Date of Service: 07/18/18 Interval History: Ms. Meyers is much more awake this morning. No further complaints from nursing about agitation. She reported discomfort on my exam d/t the way she was positioned in bed, but no actual pain. She reported that she is much more comfortable in the chair. She is looking forward to ambulating in the halls today. She was able to recall some of her conversation with Dr. Mejia from this morning, so confusion is improving. Denies CP, SOB, N/D, dizziness. Family History: Unchanged from Admission Social History: Unchanged from Admission Past Medical History: Unchanged from Admission Objective Active Medications: Acetaminophen (Tylenol Supp*) 650 mg MD Q4H PRN mild pain or fever Albuterol/Ipratropium (Duoneb (Albuterol 2.5 Mg/Ipratropium 0.5 Mg)) 1 neb INH Q4H PRN SOB/WHEEZING Dextrose (D50w Syringe 50 Ml*) 12.5 gm IV PUSH .FOR FS < 60 - SS PRN FS < 60 Haloperidol Lactate (Haldol Inj Iv/Im*) 5 mg IV SLOW PU Q6H PRN AGITATION Levetiracetam 750 mg/ Sodium (Chloride) 107.5 mls @ 440 mls/hr IVPB Q12H [facility] Potassium Chloride/Sodium Chloride (Ns 0.9% W/ 20 Meq Kcl 1000 Ml*) 1,000 mls @ 50 mls/hr IV PER RATE [facility] Piperacillin Sod/Tazobactam (Sod 3.375 gm/ Sodium Chloride) 100 mls @ 25 mls/ hr IVPB Q8H [facility] Insulin Human Lispro (Humalog*) 0 units SUBCUT Q6H [facility]; Protocol Metoprolol Tartrate (Lopressor Iv*) 5 mg IV Q4HR PRN HEART RATE/PULSE Morphine Sulfate (Morphine Vial*) 2 mg IV Q2H PRN moderate pain Morphine Sulfate (Morphine Vial*) 4 mg IV Q2H PRN moderately severe pain Ondansetron HCl (Zofran Inj*) 4 mg IV Q6H PRN NAUSEA Pantoprazole Sodium (Protonix Iv*) 40 mg IV Q24H [facility] Vital Signs - 8 hr 07/18/18 07/18/18 07/18/18 07:46 08:00 10:32 Temperature 98.8 F Pulse Rate 93 88 Respiratory 20 18 Rate Blood Pressure 139/62 (mmHg) O2 Sat by Pulse 95 95 95 Oximetry 07/18/18 12:45 Temperature 98.7 F Pulse Rate 93 Respiratory 20 Rate Blood Pressure 134/69 (mmHg) O2 Sat by Pulse 96 Oximetry Oxygen Devices in Use Now: Nasal Cannula - 2L Appearance: Elderly female laying in bed in NAD Eyes: No Scleral Icterus Ears/Nose/Mouth/Throat: Mucous Membranes Moist Neck: NL Appearance and Movements; NL JVP, Trachea Midline Respiratory: Symmetrical Chest Expansion and Respiratory Effort, Clear to Auscultation Cardiovascular: NL Sounds; No Murmurs; No JVD, RRR Abdominal: NL Sounds; No Tenderness; No Distention Extremities: No Edema, No Clubbing, Cyanosis Skin: - - Multiple surgical sites and HENRY drain to abd Neurological: Alert and Oriented x 3, NL Sensation Lines/Tubes/Other Access: Clean, Dry and Intact Peripheral IV, Clean, Dry and Intact Other Access - NG Result Diagrams: 07/18/18 05:11 07/18/18 05:11 Assess/Plan/Problems-Billing Assessment: This is an 82 year old female that presents with abdominal pain, found to have perforated pyloric ulcer, s/p surgical repair. - Patient Problems (1) Perforated ulcer Current Visit: Yes Status: Acute Code(s): K27.5 - CHRONIC OR UNSP PEPTIC ULCER, SITE UNSP, WITH PERFORATION SNOMED Code(s): 19580593 Comment: - Lap repair of perforated pyloric ulcer POD 3 - Management per surgery - Continue NG tube and NPO - Change back to NS and zosyn per surgery (2) Acidosis Current Visit: Yes Status: Acute Code(s): E87.2 - ACIDOSIS SNOMED Code(s) : 93542390 Comment: - Unclear etiology - Likely contributed to confusion; mental status improved when acidosis corrected - Resolved with bicarb - Trend BMP (3) Anemia Current Visit: Yes Status: Acute Code(s): D64.9 - ANEMIA, UNSPECIFIED SNOMED Code(s): 310130312 Comment: - Appears to be acute on chronic - 1 unit PRBC on 07/17; H&H stable - Transfuse if needed given cardiac history, recommend HgB >8.0 (4) Diabetes mellitus, type 2 Current Visit: Yes Status: Acute Comment: - Hold jardiance and linagliptin - Continue lispro SS (5) Paroxysmal atrial fibrillation Current Visit: No Status: Chronic Code(s): I48.0 - PAROXYSMAL ATRIAL FIBRILLATION SNOMED Code(s): 538994955 Comment: - Continue tele; remains in NSR - IV lopressor while NPO - Restart cardizem when no longer NPO (6) Epilepsy Current Visit: No Status: Chronic Code(s): G40.909 - EPILEPSY, UNSP, NOT INTRACTABLE, WITHOUT STATUS EPILEPTICUS SNOMED Code(s): 05723681 Comment: - Continue Keppra IV while NPO (7) GERD (gastroesophageal reflux disease) Current Visit: No Status: Chronic Code(s): K21.9 - GASTRO-ESOPHAGEAL REFLUX DISEASE WITHOUT ESOPHAGITIS SNOMED Code(s): 162798227 Comment: - Continue protonix (8) Lumbar spinal stenosis Current Visit: No Status: Acute Code(s): M48.06 - SPINAL STENOSIS, LUMBAR REGION * DO NOT USE * SNOMED Code(s): 85017078 Comment: - Chronic pain and history of high dose ASA and NSAIDS - Supportive care, PT eval when stable (9) DVT prophylaxis Current Visit: Yes Status: Acute Code(s): LSC4695 - SNOMED Code(s): 355099893 Comment: - SCDs only (10) DNR (do not resuscitate) Current Visit: Yes Status: Acute Status and Disposition: Inpatient. Dispo per surgery. Thank you for this consultation. We will continue to follow.
[2018-07-18 16:46] LABS: EGFR Non-African American 84.3 (>60)
[2018-07-18] MEDS: Pantoprazole IV* 40 MG IV SCH (19:43)
[2018-07-18] MEDS ORDERED: Metoprolol Tartrate IV* 1 MG/ML 5 ML VIAL IV PRN (22:19)
[2018-07-19] MEDS: Insulin LISPRO* 1 UNITS UNIT SUBCUT SCH ×5 (01:01→23:17)
[2018-07-19] MEDS: Piperacillin/Tazobac ADVAN(*) 3.375 GM in NS 0.9% 100 ML* 100 ML IVPB SCH ×3 (01:05→16:41)
[2018-07-19] MEDS ORDERED: Melatonin 3 MG TAB PO ONE (01:14)
[2018-07-19] MEDS: levETIRAcetam IV* 750 MG in NS 0.9% 100 ML* 100 ML IVPB SCH ×2 (05:45→17:36)
[2018-07-19 09:30] LABS: EGFR Non-African American 76.3 (>60)
[2018-07-19] MEDS ORDERED: Sodium Bicarbonate 8.4% IV* 75 MEQ in NS 0.45% 1000 ML BAG* 1,000 ML IV SCH (10:00)
--- NOTE | 2018-07-19 10:12 | PN ---
Progress Note - Progress Note Date of Service: 07/19/18 SOAP: Subjective: Agitated last night-OOB this morning and more relaxed-awake and alert No N/V, passing flatus and had 2 BM's yesterday Would like something to drink Objective: Temp Pulse Resp BP Pulse Ox 99.0 F 82 20 151/55 94 07/18/18 22:52 07/18/18 22:52 07/18/18 22:52 07/18/18 22:52 07/19/18 00:00 Intake & Output 07/17/18 07/18/18 07/19/18 07/20/18 06:59 06:59 06:59 06:59 Intake Total 2268 3204 1357 Output Total 1958 3580 1290 Balance 310 -376 67 Intake: IV Fluids 2153 2438 677 ABX - CIPROFLOXACIN 20 ABX - FLAGYL 40 ABX - ZOSYN 200 K+ 352 LR 102 blood products 338 keppra 110 ns 1843 sodium bicarb 1938 325 IVPB 115 766 521 ABX - CIPROFLOXACIN 450 ABX - FLAGYL 316 ABX - ZOSYN 207 K+ 99 keppra 115 215 Medicated IV 109 zosyn 109 Oral 0 0 50 Output: NG Tube Drainage Amount 350 300 550 NJT 300 HENRY #1 58 55 40 Urine 0 Montiel 1550 3225 700 Other: Estimated Void Medium Date of Last Bowel 07/19/18 Movement # Bowel Movements 0 0 0 Estimated Stool Amount Small # Voids 1 PEX: Comfortable Lungs are clear Abd is soft and slightly distended. Bowel sounds are present. HENRY with small amount of SG fluid, non-bilious. Incisions are clean and dry Ext without edema Laboratory Results - last 24 hr 07/18/18 07/18/18 07/18/18 11:37 16:17 16:58 Sodium 140 Potassium 3.1 L Chloride 107 Carbon Dioxide 24 Anion Gap 9 BUN 10 Creatinine 0.67 Est GFR ( Amer) 102.0 Est GFR (Non-Af Amer) 84.3 BUN/Creatinine Ratio 14.9 Glucose 114 H POC Glucose (mg/dL) 138 H 109 H Calcium 8.2 L 07/19/18 07/19/18 07/19/18 00:45 05:42 08:47 Sodium 138 Potassium TNP Chloride 109 Carbon Dioxide 17 L Anion Gap 12 H BUN 13 Creatinine 0.73 Est GFR ( Amer) 92.4 Est GFR (Non-Af Amer) 76.3 BUN/Creatinine Ratio 17.8 Glucose 97 POC Glucose (mg/dL) 112 H 108 H Calcium 8.3 L Assessment: POD# 4 s/p laparoscopic repair of perforated pyloric ulcer--UGI yesterday shows no leak and no obstruction, NGT removed yesterday Metabolic acidosis-returned today after Bicarbonate in IVF d/c'd yesterday. Small anion gap--??etiology Hypokalemia Plan: Start clear liquids--advance diet as tolerated Continue HENRY drain IV abx for 7 days Medical evaluation acidosis--? restart bicarbonate in IVF, recheck and replete K + as needed. Montiel out Physical therapy D/C planning All discussed with patient's daughter this morning-d/c planning discussed as well.
[2018-07-19 11:51] LABS: Hematocrit 32 % (35-47); Hemoglobin 9.7 g/dl (12.0-16.0); Mean Corpuscular HGB Conc 31 g/dl (31-36); Mean Corpuscular Hemoglobin 21 pg (27-31); Mean Corpuscular Volume 67 fL (80-97); Mean Platelet Volume 7.1 fL (7.4-10.4); Platelet Count 352 10^3/ul (150-450); Red Blood Count 4.72 10^6/ul (4.00-5.40); Red Cell Distribution Width 25 % (10.5-15); White Blood Count 8.9 10^3/ul (3.5-10.8)
--- NOTE | 2018-07-19 14:26 | PN ---
Subjective Date of Service: 07/19/18 Interval History: Ms. Meyers reports feeling quite well this afternoon. She is tolerating clear liquids well. She denies abdominal pain. She is passing stool. She denies chest pain or SOB. Nursing staff report that she has not been confused today. Family History: Unchanged from Admission Social History: Unchanged from Admission Past Medical History: Unchanged from Admission Objective Active Medications: Acetaminophen (Tylenol Supp*) 650 mg NM Q4H PRN Albuterol/Ipratropium (Duoneb (Albuterol 2.5 Mg/Ipratropium 0.5 Mg)) 1 neb INH Q4H PRN Dextrose (D50w Syringe 50 Ml*) 12.5 gm IV PUSH .FOR FS < 60 - SS PRN Haloperidol Lactate (Haldol Inj Iv/Im*) 5 mg IV SLOW PU Q6H PRN Levetiracetam 750 mg/ Sodium (Chloride) 107.5 mls @ 440 mls/hr IVPB Q12H [facility] Piperacillin Sod/Tazobactam (Sod 3.375 gm/ Sodium Chloride) 100 mls @ 25 mls/ hr IVPB Q8H [facility] Sodium Bicarbonate 75 meq/ (Sodium Chloride) 1,075 mls @ 125 mls/hr IV Q8H [facility] Potassium Chloride (Potassium Chloride 20 Meq/100 Ml Ivpremix*) 20 meq in 100 mls @ 50 mls/hr IV Q2H [facility] Insulin Human Lispro (Humalog*) 0 units SUBCUT Q6H [facility]; Protocol Metoprolol Tartrate (Lopressor Iv*) 5 mg IV Q4HR PRN Morphine Sulfate (Morphine Vial*) 2 mg IV Q2H PRN Morphine Sulfate (Morphine Vial*) 4 mg IV Q2H PRN Ondansetron HCl (Zofran Inj*) 4 mg IV Q6H PRN Pantoprazole Sodium (Protonix Iv*) 40 mg IV Q24H [facility] Vital Signs: Temp Pulse Resp BP Pulse Ox 98.9 F 81 16 139/58 97 07/19/18 15:52 07/19/18 15:52 07/19/18 15:52 07/19/18 15:52 07/19/18 15:52 Oxygen Devices in Use Now: None Appearance: Female sitting up in chair in NAD Eyes: No Scleral Icterus Ears/Nose/Mouth/Throat: Mucous Membranes Moist Neck: Trachea Midline Respiratory: Symmetrical Chest Expansion and Respiratory Effort, Clear to Auscultation Cardiovascular: NL Sounds; No Murmurs; No JVD, No Edema Abdominal: NL Sounds; No Tenderness; No Distention, - - soft, lap sites with steristrips (no erythema or drainage), HENRY drain with sanginous drainage Extremities: No Edema Skin: No Rash or Ulcers Neurological: Alert and Oriented x 3, NL Muscle Strength and Tone Nutrition: Taking PO's Result Diagrams: 07/19/18 11:20 07/19/18 11:20 Microbiology and Other Data: Microbiology 07/15/18 18:26 Nasal Screen MRSA (PCR) - Final Nasal Mrsa Not Detected Assess/Plan/Problems-Billing Assessment: Ms. Sherwood is an 82 year old female that presents with abdominal pain, found to have perforated pyloric ulcer, s/p surgical repair. - Patient Problems (1) Perforated ulcer Comment: - Lap repair of perforated pyloric ulcer POD 4 - Management per surgery - Advanced to clears - Continue zosyn (2) Acidosis Comment: - Likely secondary to fluid resuscitation and acute illness. - Likely contributed to confusion; mental status improved when acidosis corrected - Bicarb gtt started today, now stopped. Plan to start calcium carbonate. (3) Anemia Comment: - Appears to be acute on chronic - 1 unit PRBC on 07/17; H&H stable - Transfuse if needed given cardiac history, recommend HgB >8.0 (4) Paroxysmal atrial fibrillation Comment: - Continue tele; remains in NSR - IV lopressor while NPO - Restart cardizem when no longer NPO (5) Diabetes mellitus, type 2 Comment: - BG well controlled - Hold jardiance and linagliptin - Continue lispro SS (6) Acute confusion Comment: - Resolved - Suspect post-op delirium - Continue supportive care and limit narcotics as able (7) Asthma Comment: - No signs of acute exacerbation (8) Diabetes Comment: - Continue Lispro SS - Hold Jardiance and linagliptin while NPO, may resume at discharge (9) Epilepsy Comment: - Resume po keppra (10) GERD (gastroesophageal reflux disease) Comment: - Resume omeprazole (11) DVT prophylaxis Comment: - SCDs only (12) DNR (do not resuscitate) Comment: Status and Disposition: Inpatient. Dispo per surgery. Thank you for this consultation. We will continue to follow.
[2018-07-19] MEDS: KCL 20 MEQ/100 ML IVPREMIX* 20 MEQ/100 ML BAG IV SCH ×3 (14:28→19:37)
[2018-07-19] MEDS: Calcium Carbonate CHEW TAB* 500 MG (TUMS) PO SCH (19:37)
[2018-07-20] MEDS: Piperacillin/Tazobac ADVAN(*) 3.375 GM in NS 0.9% 100 ML* 100 ML IVPB SCH ×4 (00:46→23:51)
[2018-07-20 05:35] LABS: EGFR Non-African American 85.7 (>60)
[2018-07-20] MEDS: Insulin LISPRO* 1 UNITS UNIT SUBCUT SCH ×4 (06:20→23:47)
[2018-07-20] MEDS: Omeprazole CAP* 20 MG PO SCH (08:03)
[2018-07-20] MEDS: Diltiazem CD CAP* 120 MG PO SCH (08:03)
[2018-07-20] MEDS: levETIRAcetam TAB* 500 MG PO SCH ×2 (08:04→19:48)
[2018-07-20] MEDS: Calcium Carbonate CHEW TAB* 500 MG (TUMS) PO SCH ×2 (08:04→19:48)
--- NOTE | 2018-07-20 09:11 | PN ---
Subjective Date of Service: 07/20/18 Interval History: Ms. Meyers reports that she feels quite well. She denies chest pain, SOB, nausea, or abdominal pain. She is happy that her diet is being advanced to full liquid. Family History: Unchanged from Admission Social History: Unchanged from Admission Past Medical History: Unchanged from Admission Objective Active Medications: Acetaminophen (Tylenol Supp*) 650 mg [place] Q4H PRN Albuterol/Ipratropium (Duoneb (Albuterol 2.5 Mg/Ipratropium 0.5 Mg)) 1 neb INH Q4H PRN Calcium Carbonate (Tums*) 500 mg PO BID [facility] Dextrose (D50w Syringe 50 Ml*) 12.5 gm IV PUSH .FOR FS < 60 - SS PRN Diltiazem HCl (Cardizem Cd Cap*) 120 mg PO QAM [facility] Haloperidol Lactate (Haldol Inj Iv/Im*) 5 mg IV SLOW PU Q6H PRN Piperacillin Sod/Tazobactam (Sod 3.375 gm/ Sodium Chloride) 100 mls @ 25 mls/ hr IVPB Q8H [facility] Insulin Human Lispro (Humalog*) 0 units SUBCUT Q6H [facility]; Protocol Levetiracetam (Keppra Tab*) 750 mg PO BID [facility] Metoprolol Tartrate (Lopressor Iv*) 5 mg IV Q4HR PRN Morphine Sulfate (Morphine Vial*) 2 mg IV Q2H PRN Morphine Sulfate (Morphine Vial*) 4 mg IV Q2H PRN Omeprazole (Prilosec Cap*) 20 mg PO DAILY@0730 [facility] Ondansetron HCl (Zofran Inj*) 4 mg IV Q6H PRN Vital Signs: Temp Pulse Resp BP Pulse Ox 98.6 F 83 20 131/53 96 07/20/18 07:37 07/20/18 07:37 07/20/18 07:55 07/20/18 07:37 07/20/18 07:37 Oxygen Devices in Use Now: None Appearance: Female lying in bed in NAD Eyes: No Scleral Icterus Ears/Nose/Mouth/Throat: Mucous Membranes Moist Neck: NL Appearance and Movements; NL JVP Respiratory: Symmetrical Chest Expansion and Respiratory Effort, Clear to Auscultation Cardiovascular: NL Sounds; No Murmurs; No JVD, No Edema Abdominal: NL Sounds; No Tenderness; No Distention, - - steristrips to abdomen without draininage, incisions without drainage, HENRY with sanginous drainage Extremities: No Edema Skin: No Rash or Ulcers Neurological: Alert and Oriented x 3, NL Muscle Strength and Tone Nutrition: Taking PO's Result Diagrams: 07/19/18 11:20 07/20/18 05:05 Microbiology and Other Data: . Assess/Plan/Problems-Billing Assessment: Ms. Sherwood is an 82 year old female that presents with abdominal pain, found to have perforated pyloric ulcer, s/p surgical repair. - Patient Problems (1) Perforated ulcer Comment: - Lap repair of perforated pyloric ulcer POD 5 - Management per surgery - Advanced to full - Continue zosyn (2) Acidosis Comment: - Resolved. - Likely secondary to fluid resuscitation and acute illness. - Likely contributed to confusion; mental status improved when acidosis corrected - Continue calcium carbonate. (3) Anemia Comment: - Appears to be acute on chronic - 1 unit PRBC on 07/17; H&H stable - Transfuse if needed given cardiac history, recommend HgB >8.0 (4) Paroxysmal atrial fibrillation Comment: - Continue tele; remains in NSR - Restart cardizem (5) Diabetes mellitus, type 2 Comment: - BG well controlled - Hold jardiance and linagliptin - Continue lispro SS (6) Acute confusion Comment: - Resolved - Suspect post-op delirium - Continue supportive care and limit narcotics as able (7) Asthma Comment: - No signs of acute exacerbation (8) Diabetes Comment: - Continue Lispro SS - Hold Jardiance and linagliptin while NPO, may resume at discharge (9) Epilepsy Comment: - Resume po keppra (10) GERD (gastroesophageal reflux disease) Comment: - Resume omeprazole (11) DVT prophylaxis Comment: - SCDs only (12) DNR (do not resuscitate) Comment: Status and Disposition: Inpatient. Dispo per surgery. Thank you for this consultation. We will continue to follow.
--- NOTE | 2018-07-20 10:58 | PN ---
Progress Note - Progress Note Date of Service: 07/20/18 Note: S/P perf gastric ulcer Afeb, VS OK No pain Miroslava po's, No N/V Voiding well HENRY serous, >100 ml Abd soft, non-tender, incis clean Advance to full liqs Prob HENRY out 07/21
[2018-07-20] MEDS: Potassium Chloride LIQUID* 20 MEQ PACKET PO SCH ×2 (14:22→17:26)
[2018-07-21] MEDS: Haloperidol INJ IV/IM* 5 MG/ML AMP IV SLOW PU PRN (04:59)
[2018-07-21] MEDS: Insulin LISPRO* 1 UNITS UNIT SUBCUT SCH ×4 (05:31→23:42)
[2018-07-21 05:44] LABS: EGFR Non-African American 77.5 (>60)
[2018-07-21] MEDS: Omeprazole CAP* 20 MG PO SCH (09:18)
[2018-07-21] MEDS: Diltiazem CD CAP* 120 MG PO SCH (09:18)
[2018-07-21] MEDS: levETIRAcetam TAB* 500 MG PO SCH ×2 (09:18→19:42)
[2018-07-21] MEDS: Calcium Carbonate CHEW TAB* 500 MG (TUMS) PO SCH ×2 (09:19→19:41)
[2018-07-21] MEDS: Piperacillin/Tazobac ADVAN(*) 3.375 GM in NS 0.9% 100 ML* 100 ML IVPB SCH ×2 (09:19→16:03)
--- NOTE | 2018-07-21 13:16 | PN ---
Progress Note - Progress Note Date of Service: 07/21/18 Note: S/P perf ulcer Feels well, matias po's, No N/V Min pain Abd benign HENRY removed Poss disch 07/22
--- NOTE | 2018-07-21 14:14 | PN ---
Subjective Date of Service: 07/21/18 Interval History: Patient seen and examined at bedside. Denies fever, chills, shortness of breath , chest discomfort, N/V/D. She states that she is felling well today, she really enjoyed the strained cream of chicken soup she had for lunch. Tele: Sinus rhythm, rate 80's Family History: Unchanged from Admission Social History: Unchanged from Admission Past Medical History: Unchanged from Admission Objective Active Medications: Acetaminophen (Tylenol Supp*) 650 mg [place] Q4H PRN Reason: mild pain or fever Albuterol/Ipratropium (Duoneb (Albuterol 2.5 Mg/Ipratropium 0.5 Mg)) 1 neb INH Q4H PRN Reason: SOB/WHEEZING Calcium Carbonate (Tums*) 500 mg PO BID [facility] Dextrose (D50w Syringe 50 Ml*) 12.5 gm IV PUSH .FOR FS < 60 - SS PRN Reason: FS < 60 Diltiazem HCl (Cardizem Cd Cap*) 120 mg PO QAM [facility] Haloperidol Lactate (Haldol Inj Iv/Im*) 5 mg IV SLOW PU Q6H PRN Reason: AGITATION Piperacillin Sod/Tazobactam (Sod 3.375 gm/ Sodium Chloride) 100 mls @ 25 mls/ hr IVPB Q8H [facility] Insulin Human Lispro (Humalog*) 0 units SUBCUT Q6H [facility]; Protocol Levetiracetam (Keppra Tab*) 750 mg PO BID [facility] Metoprolol Tartrate (Lopressor Iv*) 5 mg IV Q4HR PRN Reason: Heart Rate>120 Morphine Sulfate (Morphine Vial*) 2 mg IV Q2H PRN Reason: moderate pain Morphine Sulfate (Morphine Vial*) 4 mg IV Q2H PRN Reason: moderately severe pain Omeprazole (Prilosec Cap*) 20 mg PO DAILY@0730 [facility] Ondansetron HCl (Zofran Inj*) 4 mg IV Q6H PRN Reason: NAUSEA Vital Signs - 8 hr 07/21/18 07/21/18 07/21/18 07:55 08:00 12:17 Temperature 98.2 F 97.8 F Pulse Rate 78 81 Respiratory 20 19 20 Rate Blood Pressure 134/66 136/55 (mmHg) O2 Sat by Pulse 95 95 96 Oximetry Oxygen Devices in Use Now: None Appearance: NAD, sitting up in a chair Ears/Nose/Mouth/Throat: Mucous Membranes Moist Respiratory: Symmetrical Chest Expansion and Respiratory Effort, Clear to Auscultation Cardiovascular: NL Sounds; No Murmurs; No JVD, RRR Abdominal: NL Sounds; No Tenderness; No Distention Extremities: No Edema Skin: No Rash or Ulcers Neurological: Alert and Oriented x 3, NL Muscle Strength and Tone Lines/Tubes/Other Access: Clean, Dry and Intact Peripheral IV - site benign Nutrition: Taking PO's Result Diagrams: 07/19/18 11:20 07/21/18 05:15 Microbiology and Other Data: . Assess/Plan/Problems-Billing Assessment: Ms. Sherwood is an 82 year old female with PMH significant for obesity, DM, CVA, Afib, HTN, seizures, melanoma, GERD and osteoathritis who presented with abdominal pain, found to have perforated pyloric ulcer, s/p surgical repair. - Patient Problems (1) Perforated ulcer Code(s): K27.5 - CHRONIC OR UNSP PEPTIC ULCER, SITE UNSP, WITH PERFORATION SNOMED Code(s): 31481056 Comment: - S/P Lap repair of perforated pyloric ulcer, POD 6 - Management per surgery - Tolerating a full liquid diet - Continue zosyn (2) Hypokalemia Code(s): E87.6 - HYPOKALEMIA SNOMED Code(s): 94842035 Comment: - Will give replacement today - Will add Mg+ to AM labs - Recheck labs in the AM (3) Acidosis Code(s): E87.2 - ACIDOSIS SNOMED Code(s): 10667361 Comment: - Resolved - Suspect secondary to fluid resuscitation and acute illness - Suspect this contributed to confusion; mental status improved when acidosis corrected - Continue calcium carbonate (4) Anemia Code(s): D64.9 - ANEMIA, UNSPECIFIED SNOMED Code(s): 688397909 Comment: - Appears to be acute on chronic - Received 1 unit PRBC on 07/17 - H&H stable - Transfuse if needed given cardiac history, recommend goal HgB >8.0 (5) Acute confusion Code(s): R41.0 - DISORIENTATION, UNSPECIFIED SNOMED Code(s): 690643689 Comment: - Resolved - Suspect post-op delirium - Continue supportive care and limit narcotics as able (6) Paroxysmal atrial fibrillation Code(s): I48.0 - PAROXYSMAL ATRIAL FIBRILLATION SNOMED Code(s): 396453874 Comment: - Remains in NSR on Tele - Continue cardizem - Resume Aspririn when ok with surgery (7) Diabetes mellitus, type 2 Comment: - BG well controlled, glucose 120-150's - Hold jardiance and linagliptin, resume at discharge - Continue lispro SS (8) Asthma Code(s): J45.909 - UNSPECIFIED ASTHMA, UNCOMPLICATED SNOMED Code(s): 802964572 Comment: - No signs of acute exacerbation (9) Epilepsy Code(s): G40.909 - EPILEPSY, UNSP, NOT INTRACTABLE, WITHOUT STATUS EPILEPTICUS SNOMED Code(s): 81870257 Comment: - No signs of seizures - Continue Keppra (10) GERD (gastroesophageal reflux disease) Code(s): K21.9 - GASTRO-ESOPHAGEAL REFLUX DISEASE WITHOUT ESOPHAGITIS SNOMED Code(s): 514634456 Comment: - Continue omeprazole (11) DVT prophylaxis Code(s): AXW6704 - SNOMED Code(s): 412223301 Comment: - SCDs only (12) DNR (do not resuscitate) Status and Disposition: Inpatient. Disposition per surgery, possible discharge to home in the AM. Thank you for this consultation. We will continue to follow. Attending: Emma Wiseman
[2018-07-21] MEDS: KCL 20 MEQ/100 ML IVPREMIX* 20 MEQ/100 ML BAG IV SCH ×2 (15:24→19:41)
[2018-07-21] MEDS: Potassium Chlor TAB* 20 MEQ TAB.ER PO SCH ×2 (15:24→19:42)
[2018-07-22] MEDS: Piperacillin/Tazobac ADVAN(*) 3.375 GM in NS 0.9% 100 ML* 100 ML IVPB SCH ×2 (00:12→08:58)
[2018-07-22] MEDS ORDERED: guaiFENesin LIQ* 100 MG/5 ML UDC PO PRN (02:55)
[2018-07-22 05:39] LABS: EGFR Non-African American 78.8 (>60)
[2018-07-22] MEDS: Insulin LISPRO* 1 UNITS UNIT SUBCUT SCH ×2 (06:30→13:01)
[2018-07-22] MEDS: Omeprazole CAP* 20 MG PO SCH (07:40)
[2018-07-22] MEDS: Diltiazem CD CAP* 120 MG PO SCH (08:55)
[2018-07-22] MEDS: levETIRAcetam TAB* 500 MG PO SCH (08:55)
[2018-07-22] MEDS: Calcium Carbonate CHEW TAB* 500 MG (TUMS) PO SCH (08:57)
--- NOTE | 2018-07-22 09:58 | PN ---
Progress Note - Progress Note Date of Service: 07/22/18 SOAP: Subjective:FEELS WELL,WANTS TO GO HOME;TRUMAN FULL LIQS [] Objective:tmax 99.4 VSS lungs:clear bilat;abd:+bs,soft;exit site from [facility] draining serous;incisions intact with steristrips;small area of fungal appearing rash under right breast;ext:nontender calves [] Assessment:stable for discharge from Surgical standpoint [] Plan:discussed with Dilcia Almanzar NP from Hospitalist service;would discontinue Mobic from home med list and hold ASA until she is seen for office followup next week with Dr Mejia on Sun07/31/18 at 2:15pm []
[2018-07-22] MEDS ORDERED: Potassium Chlor TAB* 20 MEQ TAB.ER PO ONE (11:03)
--- NOTE | 2018-07-22 11:38 | PN ---
Subjective Date of Service: 07/22/18 Interval History: Patient seen and examined at bedside. Denies fever, chills, shortness of breath , chest discomfort, N/V/D. States that she is feeling well, tolerating a full liquid diet. She feels ready for discharge to home later today. Tele: Sinus rhythm, rate 70-80's Family History: Unchanged from Admission Social History: Unchanged from Admission Past Medical History: Unchanged from Admission Objective Active Medications: Acetaminophen (Tylenol Supp*) 650 mg [place] Q4H PRN Reason: mild pain or fever Albuterol/Ipratropium (Duoneb (Albuterol 2.5 Mg/Ipratropium 0.5 Mg)) 1 neb INH Q4H PRN Reason: SOB/WHEEZING Calcium Carbonate (Tums*) 500 mg PO 1100,2300 [facility] [place] Dextrose (D50w Syringe 50 Ml*) 12.5 gm IV PUSH .FOR FS < 60 - SS PRN Reason: FS < 60 Diltiazem HCl (Cardizem Cd Cap*) 120 mg PO QAM [facility] Guaifenesin (Robitussin*) 5 ml PO Q6H PRN Reason: COUGH Haloperidol Lactate (Haldol Inj Iv/Im*) 5 mg IV SLOW PU Q6H PRN Reason: AGITATION Piperacillin Sod/Tazobactam (Sod 3.375 gm/ Sodium Chloride) 100 mls @ 25 mls/ hr IVPB Q8H [facility] Insulin Human Lispro (Humalog*) 0 units SUBCUT Q6H [facility]; Protocol Levetiracetam (Keppra Tab*) 750 mg PO BID [facility] [place] Metoprolol Tartrate (Lopressor Iv*) 5 mg IV Q4HR PRN Reason: Heart Rate>120 Morphine Sulfate (Morphine Vial*) 2 mg IV Q2H PRN Reason: moderate pain Morphine Sulfate (Morphine Vial*) 4 mg IV Q2H PRN Reason: moderately severe pain Omeprazole (Prilosec Cap*) 20 mg PO DAILY@0730 [facility] Ondansetron HCl (Zofran Inj*) 4 mg IV Q6H PRN Reason: NAUSEA Vital Signs - 8 hr 07/22/18 07/22/18 03:40 07:33 Temperature 98.4 F 99.4 F Pulse Rate 84 87 Respiratory 18 20 Rate Blood Pressure 140/61 155/59 (mmHg) O2 Sat by Pulse 94 95 Oximetry Oxygen Devices in Use Now: None Appearance: NAD, sitting up in a chair Ears/Nose/Mouth/Throat: Mucous Membranes Moist Respiratory: Symmetrical Chest Expansion and Respiratory Effort, Clear to Auscultation Cardiovascular: NL Sounds; No Murmurs; No JVD, RRR Abdominal: NL Sounds; No Tenderness; No Distention Extremities: - - Trace bilateral LE edema Skin: No Rash or Ulcers Neurological: Alert and Oriented x 3, NL Muscle Strength and Tone Lines/Tubes/Other Access: Clean, Dry and Intact Peripheral IV - site benign Nutrition: Taking PO's Result Diagrams: 07/19/18 11:20 07/22/18 05:07 Microbiology and Other Data: . Assess/Plan/Problems-Billing Assessment: Ms. Sherwood is an 82 year old female with PMH significant for obesity, DM, CVA, Afib, HTN, seizures, melanoma, GERD and osteoathritis who presented with abdominal pain, found to have perforated pyloric ulcer, s/p surgical repair. - Patient Problems (1) Perforated ulcer Code(s): K27.5 - CHRONIC OR UNSP PEPTIC ULCER, SITE UNSP, WITH PERFORATION SNOMED Code(s): 29020642 Comment: - S/P Lap repair of perforated pyloric ulcer, POD 7 - Management per surgery - Tolerating a full liquid diet (2) Candidiasis Code(s): B37.9 - CANDIDIASIS, UNSPECIFIED SNOMED Code(s): 82305175 Comment: - Under right breast and groin. - Nystatin power BID for 1 week (3) Hypokalemia Code(s): E87.6 - HYPOKALEMIA SNOMED Code(s): 00438696 Comment: - Will give replacement today - Intermittent monitoring outpatient (4) Acidosis Code(s): E87.2 - ACIDOSIS SNOMED Code(s): 07210102 Comment: - Resolved - Suspect secondary to fluid resuscitation and acute illness - Suspect this contributed to confusion; mental status improved when acidosis corrected - Continue calcium carbonate (5) Anemia Code(s): D64.9 - ANEMIA, UNSPECIFIED SNOMED Code(s): 951958458 Comment: - Appears to be acute on chronic - Received 1 unit PRBC on 07/17 - H&H stable - Transfuse if needed given cardiac history, recommend goal HgB >8.0 (6) Acute confusion Code(s): R41.0 - DISORIENTATION, UNSPECIFIED SNOMED Code(s): 494720742 Comment: - Resolved - Suspect post-op delirium - Continue supportive care and limit narcotics as able (7) Paroxysmal atrial fibrillation Code(s): I48.0 - PAROXYSMAL ATRIAL FIBRILLATION SNOMED Code(s): 640144355 Comment: - Remains in NSR on Tele - Continue cardizem - Resume Aspririn when ok with surgery (8) Diabetes mellitus, type 2 Comment: - BG well controlled, glucose 130-200's - Hold jardiance and linagliptin, resume at discharge - Continue lispro SS (9) Asthma Code(s): J45.909 - UNSPECIFIED ASTHMA, UNCOMPLICATED SNOMED Code(s): 157146957 Comment: - No signs of acute exacerbation (10) Epilepsy Code(s): G40.909 - EPILEPSY, UNSP, NOT INTRACTABLE, WITHOUT STATUS EPILEPTICUS SNOMED Code(s): 54298366 Comment: - No signs of seizures - Continue Keppra (11) GERD (gastroesophageal reflux disease) Code(s): K21.9 - GASTRO-ESOPHAGEAL REFLUX DISEASE WITHOUT ESOPHAGITIS SNOMED Code(s): 638036032 Comment: - Continue omeprazole (12) DVT prophylaxis Code(s): [id number] - SNOMED Code(s): 582714783 Comment: - SCDs only (13) DNR (do not resuscitate) Status and Disposition: Inpatient. Disposition per surgery, Plan for discharge to home today. Thank you for this consultation. Attending: Barak Avila
[2018-07-22 11:51] VITALS: BP 141/54
[2018-07-22] MEDS ORDERED: Nystatin TOP POWDER* 15 GM BTL TOPICAL SCH (21:00)
[2018-07-22] MEDS ORDERED: Calcium Carbonate CHEW TAB* 500 MG (TUMS) PO SCH (23:00)
== END 2018-07-22 15:49 | disposition home or self-care (01) | DRG 329 ==
LOC: ED 09:04 → OR 10:19 → ICU 18:23 → SSU 07-16 10:11 → MEDTELE 07-16 22:20
PROVIDERS: ADMIT Student in an Organized Health Care Education/Training Program; ATTEND Surgery
PROC: 0DU947Z Supplement Duodenum with Autologous Tissue Substitute, Percutaneous Endoscopic Approach (ICD-10-PCS; principal; 2018-07-15 16:15)
PROC: 30233N1 Transfusion of Nonautologous Red Blood Cells into Peripheral Vein, Percutaneous Approach (ICD-10-PCS; 2018-07-17)
DX: K25.5 Chronic or unspecified gastric ulcer with perforation (principal); K65.0 Generalized (acute) peritonitis; K57.92 Diverticulitis of intestine, part unspecified, without perforation or abscess without bleeding; E87.2 Acidosis; F05 Delirium due to known physiological condition; I48.0 Paroxysmal atrial fibrillation; G40.909 Epilepsy, unspecified, not intractable, without status epilepticus; E11.9 Type 2 diabetes mellitus without complications; D64.89 Other specified anemias; J45.909 Unspecified asthma, uncomplicated; K43.2 Incisional hernia without obstruction or gangrene; J42 Unspecified chronic bronchitis; M48.061 Spinal stenosis, lumbar region without neurogenic claudication; K21.9 Gastro-esophageal reflux disease without esophagitis; Z66 Do not resuscitate; E87.6 Hypokalemia; B37.2 Candidiasis of skin and nail; E66.9 Obesity, unspecified; I10 Essential (primary) hypertension; M19.90 Unspecified osteoarthritis, unspecified site; Z96.651 Presence of right artificial knee joint; Z68.34 Body mass index [BMI] 34.0-34.9, adult; Z86.73 Personal history of transient ischemic attack (TIA), and cerebral infarction without residual deficits; Z85.820 Personal history of malignant melanoma of skin; Z88.8 Allergy status to other drugs, medicaments and biological substances; Z91.040 Latex allergy status
CPT/HCPCS: 36415; 36600; 74246; 80048; 80053; 82803; 83605; 83735; 84100; 85025; 85027; 85610; 86850; 86900; 86901; 86922; 87641; 93005; 99285; A9270-GY; G8978-GP-CI; G8979-GP-CI; G8980-GP-CI; J0330; J0744; J1100; J1630; J2250; J2270; J2405; J2543; J2704; J3010; J3480; J3490; J7060; P9040